=== PATIENT | male | born 1975 | race Caucasian/White ===

== ENCOUNTER 2020-09-15 10:05 | Outpatient (CLI) | payer BC, SELFPAY ==
[2020-09-15 10:58] LABS: Basophils Absolute Auto 0.1 K/mm3 (0.0-0.1); Eosinophils Absolute Auto 0.1 K/mm3 (0-0.3); Eosinophils Percent Auto 1.3 % (0-4.4); Hemoglobin 16.1 g/dL (14.0-18.0); Immature Granulocyte Absolute 0.03 K/mm3 (0.00-0.031); Immature Granulocyte Percent A 0.5 % (0-0.5); Lymphocytes Percent Auto 28.7 % (18.3-44.2); Mean Corpuscular HGB Conc 34.3 g/dl (32-36); Mean Corpuscular Hemoglobin 31.4 pg (26-34); Mean Corpuscular Volume 91.6 fl (80-100); Mean Platelet Volume 9.5 fl (7.4-10.4); Monocytes Absolute Auto 0.4 K/mm3 (0.1-0.6); Monocytes Percent Auto 6.9 % (2.6-8.5); Neutrophils Absolute Auto 3.9 K/mm3 (1.3-6.7); Neutrophils Percent Auto 61.6 % (45.5-73.1); Platelet Count Result 263 k/mm3 (150-375); Red Blood Count 5.13 M/mm3 (4.6-6.20); Red Cell Distribution Width 11.7 % (11.5-14.5); White Blood Count 6.3 K/mm3 (4.5-10.0)
[2020-09-15 11:01] LABS: Add Urine Microscopic? NO; Appearance Urine Clear (Clear); Bilirubin Urine Negative (Negative); Blood Urine Negative (Negative); Color Urine Yellow (Yellow); Glucose Urine UA Negative (Negative); Ketones Urine Negative (Negative); Leukocyte Esterase Ur Negative LEU/UL (NEGATIVE); Nitrate Urine Negative (Negative); Protein Urine Negative (Negative); Specific Grav Ur 1.018 (1.001-1.035); Urobilinogen Urine Negative mg/dL (<2.0)
[2020-09-15 11:11] LABS: Alanine Aminotransferase 45 U/L (4-50); Albumin Level 4.4 g/dL (3.5-5.1); Alkaline Phosphatase 85 U/L (38-126); Anion Gap 10 mmol/L (8-16); Aspartate Amino Transferase 30 U/L (17-59); Bilirubin,Total 0.6 mg/dL (0.2-1.3); Blood Urea Nitrogen 18 mg/dL (9-20); Calcium 9.9 mg/dL (8.4-10.2); Carbon Dioxide 27 mmol/L (22-30); Chloride 105 mmol/L (98-107); Cholesterol 202 mg/dL (0-200); Estimated Glomerular Filt Rate 54; Glucose 130 mg/dL (75-110); HDL Direct 62 mg/dL; Potassium 3.8 mmol/L (3.4-5.0); Sodium 142 mmol/L (137-145); Triglycerides 237 mg/dL (<150)
[2020-09-15 11:15] LABS: Hemoglobin A1C 5.5 % (<5.7)
[2020-09-15 11:25] LABS: LDL Cholesterol Direct 116 mg/dL
[2020-09-15 11:42] LABS: Prostate Specific Antigen 0.8 ng/mL (< OR = 4.0); Thyroid Stimulating Hormone 0.566 uIU/mL (0.465-4.680)
[2020-09-15 12:13] LABS: Free T4 Free Thyroxine 0.82 ng/mL (0.78-2.19)
== END 2020-09-15 10:06 | disposition home or self-care (01) ==
LOC: ANHLAB 10:07
PROVIDERS: PCP Physician Assistant; Visit Provider Physician Assistant
DX: Z13.220 Encounter for screening for lipoid disorders (principal); Z12.5 Encounter for screening for malignant neoplasm of prostate; Z13.1 Encounter for screening for diabetes mellitus; Z79.899 Other long term (current) drug therapy
CPT/HCPCS: 36415; 80053; 80061; 81003; 83036; 84153; 84439; 84443; 85025; G0103

== ENCOUNTER 2020-11-15 09:10 | Outpatient (CLI) | payer BC, SELFPAY ==
--- NOTE | 2020-11-29 14:02 | WPDHOMESLEEP ---
Sleep Study - Home Unattended Date of Study: 11/15/20 Ordering Provider: Magui Hidalgo PA-C Interpreting Provider: Katy Morrow MD Home Sleep Study Type: Apnea Link Air Height: 1.91 m Weight: 108.862 kg Body Mass Index: 29.9 Neck Circumference (inches): 18 [place]: 12 Reason for Sleep Study Fatigue all the time, hypersomnolence, hypertension Sleep History Be Georges is a 45 year-old man who feels tired all the time. He has hypertension, and takes amlodipine. He is sleepy in the day, and has difficulty waking in the morning. He frequently snores, and occasionally it is loud enough that others complain. He occasionally wakes at night with heartburn, belching or coughing. He rarely has trouble sleeping with a cold. He occasionally wakes up gasping for breath during night. He occasionally has breathing problems at night observed by others. He does not sweat excessively at night or notice his heart pounding or beating irregularly night. He occasionally falls asleep during the day, never involuntarily or while driving. He does not have loss of muscle tone with strong emotion. 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 He rarely feels paralyzed on waking or falling asleep. He does not have vivid dreamlike scenes upon awakening or falling asleep. He is not afraid to go to sleep. He rarely has nightmares. He rarely remembers his dreams. He rarely has racing thoughts. He rarely feels sad, depressed or anxious. He rarely has muscular tension. He occasionally notices parts of his body jerking. He occasionally kicks at night. He does not have crawling or aching feelings in his legs and does not have any kind of leg pain at night. He rarely has morning jaw pain. He occasionally grinds his teeth during sleep. He rarely is bothered by pain during the day, rarely is awakened by pain at night. He rarely wakes up feeling stiff in the morning with sore or achy muscles or pain in the spine. He takes antacids regularly. Normal bedtime is 8:30 p.m. falling asleep in 30 seconds, waking during the night up 4 times to urinate. He wakes in the morning at 3:45 a.m.. He estimates getting 6-1/2 or 7 hours of sleep at night. On the weekends, he stays awake until 10:30 p.m., sleeps later, wakes at 7:30 a.m.. He does take a short nap sometime in the afternoon or evening. A short 10 or 15 minute nap can be refreshing. He is usually drowsy in the morning for 3 hours or longer. He feels better in the afternoon compared to the morning. Habits: Never smoked tobacco. He has 5 caffeinated beverage a day. He has 2 alcoholic beverages a day. No recreational drugs. [facility] Past Medical History Medical History (Updated 11/29/20 @ 14:21 by Katy Morrow MD) Depression Generalized anxiety disorder Heartburn Hypertension Nasal congestion Psoriasis Family History Family History (Updated 11/29/20 @ 14:17 by Katy Morrow MD) Grandparent Malignant neoplasm of prostate Family history of coronary artery disease Diabetes mellitus Father Atrial fibrillation COPD (chronic obstructive pulmonary disease) Lung cancer Social History Social History Smoking status: Never smoker Alcohol intake: current Medications Home Medications Medication Instructions Recorded Confirmed Type alprazolam 0.25 mg tablet 0.25 mg PO TID PRN #90 tablet 09/21/19 Rx Medications: amlodipine 5 mg a day citalopram 40 mg a day Humira injection every 2 weeks Sleep Procedure This test was performed using 4 channel monitoring including respiratory effort channel, snoring channel, heart rate channel, and oxygen saturation channel. This study was scored using [facility] guidelines. Sleep Architecture Not applicable for home sleep test. Respiratory Analysis The recording time is 7 hours 59 minutes. Evaluation time is 7 hours 41 minutes. The apnea-hypopnea index is 13.3 mildly elevated. He had
[2020-11-29 14:07] VITALS: BMI 29.9
== END 2020-11-15 09:11 | disposition home or self-care (01) ==
LOC: ANHCSM 09:11
PROVIDERS: Family Provider Family Medicine; PCP Physician Assistant; Visit Provider Physician Assistant
DX: G47.33 Obstructive sleep apnea (adult) (pediatric) (principal); I10 Essential (primary) hypertension
CPT/HCPCS: 95806

== ENCOUNTER → 2021-01-09 04:31 | Outpatient (CLI) | payer BC, SELFPAY ==
[2021-01-09 19:57] LABS: SARS-CoV-2 RNA PCR Negative
== END ==
PROVIDERS: PCP Physician Assistant; Visit Provider Internal Medicine Critical Care Medicine
DX: Z20.822 Contact with and (suspected) exposure to COVID-19 (principal)
CPT/HCPCS: C9803; U0003; U0005

== ENCOUNTER 2021-01-11 07:19 | Outpatient (CLI) | payer BC, SELFPAY ==
--- NOTE | 2021-01-25 15:51 | WPDSLEEPSTUD ---
Sleep Study Ordering Provider: Magui Hidalgo, BRIAN Interpreting Physician: Katy Morrow MD Sleep Study Type: CPAP Titration Height: 1.91 m Weight: 106.594 kg Body Mass Index: 29.3 Neck Circumference (inches): 16.5 [place]: 14 Reason for Sleep Study Home sleep test 11/14/2020 with mild VENICE, AHI 13.3 with all 7 apneas scored as central apneas; patient presents for CPAP titration. Sleep History Be Georges is a 45 year-old man who feels tired all the time. His home sleep test showed 7 apneas, and they were all scored as central apneas. He has hypertension, and takes amlodipine. He is sleepy in the day, and has difficulty waking in the morning. He frequently snores, and occasionally it is loud enough that others complain. He occasionally wakes at night with heartburn, belching or coughing. He rarely has trouble sleeping with a cold. He occasionally wakes up gasping for breath during night. He occasionally has breathing problems at night observed by others. He does not sweat excessively at night or notice his heart pounding or beating irregularly night. He occasionally falls asleep during the day, never involuntarily or while driving. He does not have loss of muscle tone with strong emotion. 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 He rarely feels paralyzed on waking or falling asleep. He does not have vivid dreamlike scenes upon awakening or falling asleep. He is not afraid to go to sleep. He rarely has nightmares. He rarely remembers his dreams. He rarely has racing thoughts. He rarely feels sad, depressed or anxious. He rarely has muscular tension. He occasionally notices parts of his body jerking. He occasionally kicks at night. He does not have crawling or aching feelings in his legs and does not have any kind of leg pain at night. He rarely has morning jaw pain. He occasionally grinds his teeth during sleep. He rarely is bothered by pain during the day, rarely is awakened by pain at night. He rarely wakes up feeling stiff in the morning with sore or achy muscles or pain in the spine. He takes antacids regularly. Normal bedtime is 8:30 p.m. falling asleep in 30 seconds, waking during the night up 4 times to urinate. He wakes in the morning at 3:45 a.m.. He estimates getting 6-1/2 or 7 hours of sleep at night. On the weekends, he stays awake until 10:30 p.m., sleeps later, wakes at 7:30 a.m.. He does take a short nap sometime in the afternoon or evening. A short 10 or 15 minute nap can be refreshing. He is usually drowsy in the morning for 3 hours or longer. He feels better in the afternoon compared to the morning. Habits: Never smoked tobacco. He has 5 caffeinated beverage a day. He has 2 alcoholic beverages a day. No recreational drugs. [facility] Past Medical History Medical History Depression Generalized anxiety disorder Heartburn Hypertension Nasal congestion Psoriasis Family History Family History Grandparent Malignant neoplasm of prostate Family history of coronary artery disease Diabetes mellitus Father Atrial fibrillation COPD (chronic obstructive pulmonary disease) Lung cancer Social History Social History Smoking status: Never smoker Alcohol intake: current Medications Home Medications Medication Instructions Recorded Confirmed Type alprazolam 0.25 mg tablet 0.25 mg PO TID PRN #90 tablet 09/21/19 Rx Medications: amlodipine 5 mg citalopram 40 mg Sleep Procedure This test was performed using the [employer] multiple channel system including EOG, EEG, submental EMG, EKG, nasal and oral airflow using thermistors and nasal pressure sensors, chest and abdominal belts for body position data, and pulse oximetry. Video monitoring was also performed. The study was schardeep
[2021-01-25 15:54] VITALS: BMI 29.3
== END 2021-01-11 07:20 | disposition home or self-care (01) ==
LOC: ANHCSM 07:19
PROVIDERS: PCP Physician Assistant; Visit Provider Physician Assistant
DX: G47.33 Obstructive sleep apnea (adult) (pediatric) (principal); F32.9 Major depressive disorder, single episode, unspecified; F41.1 Generalized anxiety disorder; I10 Essential (primary) hypertension; R12 Heartburn; Z79.899 Other long term (current) drug therapy; G25.81 Restless legs syndrome
CPT/HCPCS: 95811

== ENCOUNTER 2022-03-05 12:10 | Outpatient (CLI) | payer BC, SELFPAY ==
--- NOTE | ~2022-03-05 | XR_ITS ---
EXAMINATION: XR knee RT min 4V, XR tibia fibula RT 2V DATE: 03/05/2022 12:46 INDICATION: Right lower leg injury with medial right knee swelling and laceration to the distal anter ior right lower leg. TECHNIQUE: 1. Anteroposterior, 2 oblique and crosstable lateral views of the affected knee were obtained 2. Anteroposterior and lateral views of the right lower leg were obtained. COMPARISON: None. FINDINGS: Alignment of the right lower leg is normal from the right knee through the ankle. No fracture. Joint spaces are normal. No joint effusion/layering lipohemarthrosis. Small round ossicle either degenerat eric loose osteochondral body or heterotopic ossicle projecting over the soft tissues posterior to the right ankle. Soft tissue swelling medial to the right knee.. No radiopaque foreign bodies. IMPRESSION: 1. No osseous abnormality or radiopaque foreign body. Reviewed, dictated and finalized at location B. IMPRESSION: 1. No osseous abnormality or radiopaque foreign body.
== END 2022-03-05 12:11 | disposition home or self-care (01) ==
LOC: ANHIMG 12:16
PROVIDERS: PCP Physician Assistant; Visit Provider Physician Assistant
DX: S89.91XA Unspecified injury of right lower leg, initial encounter (principal); X58.XXXA Exposure to other specified factors, initial encounter
CPT/HCPCS: 73564; 73590

== ENCOUNTER 2022-03-26 14:19 | Outpatient (NON) | payer BC, SELFPAY ==
[2022-03-26 15:38] LABS: Appearance Synovial Fluid Bloody (Clear); Color Synovial Fluid Red (Colorless); Crystals Synovial Fluid None Seen (None Seen); Lymphocytes Synovial Fluid 18 %; Monocytes Synovial Fluid 74 %; Neutrophils Synovial Fluid 8 % (0-25); Nucleated Cell Synovial Fluid 580 /uL (0-200); Source Synovial Fluid Synovial fluid
== END 2022-03-26 14:20 | disposition home or self-care (01) ==
PROVIDERS: PCP Physician Assistant; Visit Provider Orthopaedic Surgery
DX: M25.561 Pain in right knee (principal)
CPT/HCPCS: 87070; 87075; 87205; 89051; 89060

== ENCOUNTER 2022-08-31 00:28 | Day surgery (SDC) | payer BC, SELFPAY ==
[2022-08-23 14:17] VITALS: BMI 30.8
--- NOTE | 2022-08-30 20:26 | PM.HPGS ---
History of Present Illness History of Present Illness Consent: Risks, benefits, and alternatives have been discussed and questions answered. Patient agrees to proceed with procedure. Chief complaint: neoplasm screening Narrative: Be Georges is a 47 year old male Referred for colon cancer screening. Review of Systems Review of Systems: All systems reviewed & are unremarkable except as noted in HPI and below PMFSH Past Medical History Medical History Depression Generalized anxiety disorder Heartburn Hypertension Nasal congestion Psoriasis Family History Family History Grandparent Malignant neoplasm of prostate Family history of coronary artery disease Diabetes mellitus Father Atrial fibrillation COPD (chronic obstructive pulmonary disease) Lung cancer Social History Social History Smoking status: Never smoker Alcohol intake: current Alcohol use details: socially Substance use: never Substance use type: does not use Living arrangements: with family Spiritual care concerns: No Meds Home Medications and Allergies Home Medications Medication Instructions Recorded Confirmed Type alprazolam 0.25 mg tablet 0.25 mg PO TID PRN anxiety #90 tabs 09/21/19 08/23/22 Rx amlodipine 5 mg tablet 5 mg PO DAILY 08/23/22 08/23/22 History aripiprazole 2 mg tablet 2 mg PO DAILY 08/23/22 08/23/22 History citalopram 40 mg tablet 40 mg PO DAILY 08/23/22 08/23/22 History fluticasone propionate 50 2 spray intranasal DAILY 08/23/22 08/23/22 History mcg/actuation nasal spray,suspension meloxicam 15 mg tablet 15 mg PO DAILY 08/23/22 08/23/22 History Allergies Allergy/AdvReac Type Severity Reaction Status Date / Time No Known Allergies Allergy Mild Verified 08/31/22 09:26 Exam Resp: Auscultation: clear to auscultation bilaterally Cardio: Rate: regular rate Rhythm: regular rhythm GI: GI Palp: Yes Soft to palpation and No Tenderness to palpation present (GI) Assessment and Plan Assessment and plan (1) Colon cancer screening: Code(s): Z12.11 - Encounter for screening for malignant neoplasm of colon Status: Acute Assessment and Plan: Colonoscopy with possible biopsy or polypectomy or cautery or injection of substances.
[2022-08-31] VITALS (10 sets, daily range): BP systolic 137–171; BP diastolic 103–120; PULSE 80–106; RESP 18–22; TEMP 36.4; O2SAT 96–98
[2022-08-31] MEDS: LACTATED RINGERS 1,000 ML 150 ML IV CONT (09:43)
[2022-08-31] MEDS: LABETALOL HCL INJ 100 MG/20 ML VIAL IV PUSH ×2 (11:15→11:25)
--- NOTE | 2022-08-31 11:17 | SUR.PHASEII ---
1054: EDILIA OLIVEIRA AND DR CORDOBA BOTH AWARE OF PT'S BLOOD PRESSURE, 166/116, HEARTRATE 108. NO NEW ORDERS RECEIVED AT THIS TIME. WILL CONTINUE TO MONITOR. 1115: DR CORDOBA MADE AWARE OF PT'S CURRENT VITAL SIGNS, 171/117, HEARTRATE 106 AND 166/119, HEARTRATE 104. NEW ORDER RECEIVED FOR LABETALOL 5MG IV PUSH. EDILIA WINTER ADMINISTERED PER ORDERS. 1121: CURRENT BLOOD PRESSURE 164/120, HEARTRATE 88. DR CORDOBA SEEING PT. DR CORDOBA ADMINISTERED ANOTHER 5MG IV PUSH LABETALOL. PT AWAKE AND TALKING. PT AND SPOUSE EDUCATED. PT AND SPOUSE STATE UNDERSTANDING AND HAVE NO CONCERNS. WILL CONTINUE TO MONITOR.
--- NOTE | 2022-08-31 11:33 | SUR.PHASEII ---
DR CORDOBA SEEING PT. CURRENT BLOOD PRESSURE 163/120, HEART RATE 78. PT CONTINUES TO BE AWAKE AND ALERT. NO NEW ORDERS RECEIVED AT THIS TIME. REPORT GIVEN TO TONYA BARON TO ASSUME CARE FOR THIS PT AT THIS TIME.
--- NOTE | 2022-08-31 12:25 | SUR.PHASEII ---
Patient's BP started to trend down x2 after 1134. Dr. Lawson informed. Ok to d/c per Dr. Lawson. Patient is stable. No cardiac symptoms of dizziness, chest pain, or headache upon discharge. Informed patient to keep checking BP today after he gets home. Instructed to go to ER is patient gets symptomatic or readings get too high. Family and patient verbalize understanding.
== END 2022-08-31 12:08 | disposition home or self-care (01) ==
PROVIDERS: PCP Physician Assistant; Visit Provider Internal Medicine Gastroenterology
PROC: 0DJD8ZZ Inspection of Lower Intestinal Tract, Via Natural or Artificial Opening Endoscopic (ICD-10-PCS; CPT 45378; principal; 2022-08-31 10:30)
DX: Z12.11 Encounter for screening for malignant neoplasm of colon (principal); K57.30 Diverticulosis of large intestine without perforation or abscess without bleeding; I10 Essential (primary) hypertension; L40.9 Psoriasis, unspecified
CPT/HCPCS: 45378; J2704; J7120

== ENCOUNTER 2023-02-19 14:37 | Outpatient (CLI) | payer BC, SELFPAY ==
--- NOTE | ~2023-02-19 | MR_ITS ---
EXAMINATION: MR foot LT wo con DATE: 02/19/2023 15:36 INDICATION: Anterior tibial syndrome. Left foot pain. TECHNIQUE: Magnetic resonance imaging (MRI) of the left foot was performed without intravenous contra st. COMPARISON: None FINDINGS: Bone alignment is normal. No fracture. There is mild osteoarthritis of the ankle joint and some of the midfoot joints. There is severe osteoarthritis of first and second tarsometatarsal joints . There is a skin marker dorsal to these joints. There are changes of sprain of the Lisfranc ligament characterized by increased signal intensity. There are changes of prior sprain of the deltoid ligame nt characterized by thickening and increased signal involving the superficial component and heterotop ic ossification involving the deep component. There are changes of prior sprain of anterior talofibul ar ligament and calcaneofibular ligament characterized by increased signal intensity. Anterior tibiof ibular ligament, posterior tibiofibular ligament, and posterior talofibular ligament are normal. Ther e is tenosynovitis of extensor digitorum longus. Anterior tibial tendon is normal. IMPRESSION: 1. 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 2. Lisfranc ligament sprain. 3. Tenosynovitis of extensor digitorum longus. Reviewed, dictated and finalized at location A.
== END 2023-02-19 14:38 | disposition home or self-care (01) ==
PROVIDERS: PCP Physician Assistant; Visit Provider Podiatrist Foot & Ankle Surgery
DX: M19.072 Primary osteoarthritis, left ankle and foot (principal); S93.692A Other sprain of left foot, initial encounter; M65.872 Other synovitis and tenosynovitis, left ankle and foot; X58.XXXA Exposure to other specified factors, initial encounter
CPT/HCPCS: 73718

== ENCOUNTER 2023-06-14 21:47 | Emergency (ER) | payer BC, SELFPAY ==
--- NOTE | ~2023-06-14 | XR_ITS ---
EXAMINATION: XR forearm RT 2V INDICATION: Right forearm pain, dog bite TECHNIQUE: Two views of the right forearm are obtained. COMPARISON: None available FINDINGS: Bone alignment is normal. There is no fracture. There is soft tissue swelling of the distal forearm. IMPRESSION: 1. Soft tissue swelling of the distal forearm without evidence of underlying osseous abnormality. Reviewed, dictated and finalized at location F. IMPRESSION: 1. Soft tissue swelling of the distal forearm without evidence of underlying os seous abnormality.
[2023-06-14 21:53] VITALS: BP 136/98; PULSE 135; RESP 18; TEMP 37.5; O2SAT 95
[2023-06-14 22:41] LABS: Basophils Absolute Auto 0.1 K/mm3 (0.0-0.1); Basophils Percent Auto 0.5 % (0.2-1.2); Eosinophils Absolute Auto 0.1 K/mm3 (0-0.3); Eosinophils Percent Auto 0.4 % (0-4.4); Hematocrit 44.3 % (42.0-52.0); Hemoglobin 15.1 g/dL (14.0-18.0); Immature Granulocyte Absolute 0.05 K/mm3 (0.00-0.031); Immature Granulocyte Percent A 0.3 % (0-0.5); Lymphocytes Absolute Auto 2.03 K/mm3 (0.9-3.2); Lymphocytes Percent Auto 12.9 % (18.3-44.2); Mean Corpuscular HGB Conc 34.1 g/dl (32-36); Mean Corpuscular Hemoglobin 31.1 pg (26-34); Mean Corpuscular Volume 91.3 fl (80-100); Mean Platelet Volume 9.5 fl (7.4-10.4); Monocytes Absolute Auto 1.1 K/mm3 (0.1-0.6); Monocytes Percent Auto 7.2 % (2.6-8.5); Neutrophils Absolute Auto 12.4 K/mm3 (1.3-6.7); Neutrophils Percent Auto 78.7 % (45.5-73.1); Platelet Count Result 260 k/mm3 (150-375); Red Blood Count 4.85 M/mm3 (4.6-6.20); Red Cell Distribution Width 12.3 % (11.5-14.5); White Blood Count 15.8 K/mm3 (4.5-10.0)
[2023-06-14 22:55] LABS: Anion Gap 8 mmol/L (8-16); Blood Urea Nitrogen 14 mg/dL (9-20); Calcium 9.6 mg/dL (8.4-10.2); Carbon Dioxide 27 mmol/L (22-30); Chloride 104 mmol/L (98-107); Estimated CRCL calculation 90 ml/min; Estimated Glomerular Filt Rate > 60; Glucose 127 mg/dL (65-110); Potassium 3.6 mmol/L (3.4-5.0); Sodium 139 mmol/L (137-145)
--- NOTE | 2023-06-15 00:35 | ECG_ITS ---
Measurements Intervals [place] Rate: 112 P: 135 MN: 156 QRS: 159 QRSD: 96 T: 147 QT: 323 QTc: 442 Interpretive Statements SINUS TACHYCARDIA ARM LEADS REVERSED DELAYED PRECORDIAL R/S TRANSITION BASELINE WANDER- II, III, AVL, AVF ABNORMAL ECG NO PREVIOUS ECG AVAILABLE FOR COMPARISON Electronically Signed On 06-15-2023 8:12:55 CDT by Isrrael Ellis D.O.
--- NOTE | 2023-06-15 00:35 | ED.WOUNDLAC ---
HPI - Wound/Laceration General Chief Complaint: Wound/Laceration Stated Complaint: wound to right arm Time Seen by Provider: 06/15/23 00:27 History of Present Illness HPI narrative: 47-year-old male reports for evaluation for redness and pain to his right forearm after a dog bite 3 days ago. Patient states 3 days ago, his dogs were fighting and he tried to break the fight up and either got bit or scratched in the dorsum of his right distal forearm. States he did not have any problems in that area until he woke up this morning with edema, erythema and pain. States he has had intermittent subjective fevers with body aches and chills and an episode of nausea earlier today. He denies vomiting, purulent drainage, difficulty with range of motion of his arm or wrist. No history of diabetes or vascular disease. Patient states his dogs are up-to-date on their vaccines. Related Data Home Medications Medication Instructions Recorded Confirmed amlodipine 5 mg tablet 5 mg PO DAILY 08/23/22 08/23/22 aripiprazole 2 mg tablet 2 mg PO DAILY 08/23/22 08/23/22 citalopram 40 mg tablet 40 mg PO DAILY 08/23/22 08/23/22 fluticasone propionate 50 2 spray intranasal DAILY 08/23/22 08/23/22 mcg/actuation nasal spray,suspension meloxicam 15 mg tablet 15 mg PO DAILY 08/23/22 08/23/22 Allergies Allergy/AdvReac Type Severity Reaction Status Date / Time No Known Allergies Allergy Mild Verified 08/31/22 09:26 Review of Systems Review of Systems: CONSTITUTIONAL: Denies fever, chills EYES: Denies visual changes, redness, or discharge. ENT: Denies rhinorrhea, congestion, sore throat, or otalgia. CARDIOVASCULAR: Denies chest pain, palpitations, or edema. RESPIRATORY: Denies cough or dyspnea. GASTROINTESTINAL: Denies abdominal pain, nausea, vomiting, or diarrhea. GENITOURINARY: Denies dysuria or hematuria. SKIN: See HPI MUSCULOSKELETAL: Denies back pain, joint pain, or myalgia. NEUROLOGIC: Denies headache, numbness, dizziness, or weakness. PSYCHIATRIC: Denies anxiety or depression. [facility] Past Medical History Medical History Depression Generalized anxiety disorder Heartburn Hypertension Nasal congestion Psoriasis Family History Family History Grandparent Malignant neoplasm of prostate Family history of coronary artery disease Diabetes mellitus Father Atrial fibrillation COPD (chronic obstructive pulmonary disease) Lung cancer Social History Social History Smoking status: Never smoker Alcohol intake: current Alcohol use details: socially Substance use: never Substance use type: does not use Living arrangements: with family Spiritual care concerns: No Exam Narrative: GENERAL: Well-appearing, in no acute distress. Patient resting comfortably in exam bed. He is pleasant and conversational. HEAD: Normocephalic EYES: PERRLA ENT: Nares clear. Mucous membranes moist. Oropharynx without tonsillar hypertrophy exudate or other lesions. NECK: Supple. CHEST: No respiratory distress. Clear to auscultation, no adventitious breath sounds. HEART: Regular rate and rhythm. No murmur heard. Normal peripheral pulses. ABDOMEN: Soft, nontender, normal active bowel sounds. EXTREMITIES: Normal range of motion. No edema. SKIN: 6 cm annular region of warmth, erythema and tenderness to the dorsum of the distal right forearm with a central puncture that has a healing scab. There is an area of induration surrounding the puncture without fluctuance. No active drainage. Full range of motion of wrist. Radial pulse 2+. Cap refill less than 2. Sensation intact NEURO: No focal deficits. Alert and oriented x3. PSYCH: Normal mood and affect. Course Vital Signs Vital signs: Vital Signs Temperature 99.5 F 06/14/23 21:53 Pulse Rate 135 H
[2023-06-15] MEDS: SODIUM CHLORIDE 0.9% IV 1,000 ML 999 ML IV CONT (01:11)
[2023-06-15] MEDS: ACETAMINOPHEN 500 MG TABLET 1000 MG PO (01:22)
[2023-06-15] MEDS: TETANUS,DIPHTHERIA,AC PERTUSSIS ADULT (0.5 ML) BOOSTRIX IM (01:23)
[2023-06-15] MEDS: ceFAZolin 1 GM/NS 50 ML 1 GM/50 ML BAG IVPB (01:30)
[2023-06-15 01:39] LABS: Lactic Acid Reflex 1.5 mmol/L (0.7-2.0)
[2023-06-15 01:41] LABS: CRP 1.9 mg/dL (<1.0)
[2023-06-15 02:10] VITALS: BP 150/95; PULSE 101; RESP 15; O2SAT 98
[2023-06-15 02:47] VITALS: BP 146/70; PULSE 99; RESP 14; O2SAT 95
== END 2023-06-15 03:17 | disposition home or self-care (01) ==
PROVIDERS: Emergency Medicine; Emergency Provider Physician Assistant; PCP Physician Assistant
DX: S51.851A Open bite of right forearm, initial encounter (principal); L03.113 Cellulitis of right upper limb; Z23 Encounter for immunization; I10 Essential (primary) hypertension; R12 Heartburn; L40.9 Psoriasis, unspecified; F32.A Depression, unspecified; F41.1 Generalized anxiety disorder; W54.0XXA Bitten by dog, initial encounter
CPT/HCPCS: 36415; 73090; 80048; 83605; 85025; 86140; 87040; 90471; 90715; 93005; 96365; 99284; A9270; J0690; J7030

== ENCOUNTER → 2023-07-29 07:51 | Outpatient (CLI) | payer BC, SELFPAY ==
--- NOTE | ~2023-07-29 | US_ITS ---
Limited Abdominal Sonogram: Real-time sonographic imaging of the right upper quadrant was performed. Clinical History: Abnormal liver transaminase levels Findings: The liver appears echogenic, with no definite evidence of solid mass lesion or bile duct d ilatation. Small hepatic cyst present. Main portal vein demonstrates normal direction of flow. The ga llbladder is well distended, and appears normal with no evidence of gallstone or wall thickening. The common bile duct measures 5 mm. The visualized aorta, and IVC are unremarkable. Pancreas is largely obscured by bowel gas shadowing. Right kidney measures 11.8 cm in length, without evidence of hydron ephrosis. Impression: Diffuse fatty infiltration of liver. Portions of the liver obscured by bowel gas shadowing. Reviewed, dictated and finalized at location M. [employer] Impression: Diffuse fatty infiltration of liver. Portions of the liver obscured by bowel ga s shadowing.
== END ==
PROVIDERS: PCP Physician Assistant; Visit Provider Physician Assistant
DX: R74.01 Elevation of levels of liver transaminase levels (principal); K76.0 Fatty (change of) liver, not elsewhere classified
CPT/HCPCS: 76705

== ENCOUNTER 2024-04-01 00:40 | Day surgery (SDC) | payer BC, SELFPAY ==
[2024-03-18 10:00] VITALS: BMI 31.9
[2024-04-01 07:57] VITALS: BP 145/103; PULSE 93; RESP 18; TEMP 36.4; O2SAT 96
[2024-04-01] MEDS: LACTATED RINGERS 1,000 ML 150 ML IV CONT (08:07)
--- NOTE | 2024-04-01 08:19 | PM.HPGS ---
History of Present Illness History of Present Illness Consent: Risks, benefits, and alternatives have been discussed and questions answered. Patient agrees to proceed with procedure. Chief complaint: GERD, Dysphagia Narrative: Be Georges is a 48 year old male with dysphagia which has improved after ppi but never had egd Review of Systems Review of Systems: All systems reviewed & are unremarkable except as noted in HPI and below PMFSH Past Medical History Medical History Depression Generalized anxiety disorder Heartburn Hypertension Nasal congestion Psoriasis Family History Family History Grandparent Malignant neoplasm of prostate Family history of coronary artery disease Diabetes mellitus Father Atrial fibrillation COPD (chronic obstructive pulmonary disease) Lung cancer Social History Social History Smoking status: Never smoker Alcohol intake: current Drinks per week: 6 Alcohol use details: socially Substance use: current Substance use type: marijuana Living arrangements: with family Spiritual care concerns: No Meds Home Medications and Allergies Home Medications Medication Instructions Recorded Confirmed Type alprazolam 0.25 mg tablet 0.25 mg PO TID PRN anxiety #90 tabs 09/21/19 03/18/24 Rx amlodipine 5 mg tablet 5 mg PO DAILY 08/23/22 03/18/24 History aripiprazole 2 mg tablet 2 mg PO DAILY 08/23/22 03/18/24 History fluticasone propionate 50 2 spray intranasal DAILY 08/23/22 03/18/24 History mcg/actuation nasal spray,suspension omeprazole 40 mg capsule,delayed 40 mg PO DAILY 02/26/24 03/18/24 History release sertraline 150 mg capsule 150 mg PO DAILY 03/18/24 03/18/24 History Allergies Allergy/AdvReac Type Severity Reaction Status Date / Time No Known Allergies Allergy Mild Verified 04/01/24 07:55 Vital Signs Vital Signs - 24 hr 04/01/24 07:57 Temperature 97.6 F Pulse Rate 93 Respiratory Rate 18 Blood Pressure 145/103 H Pulse Oximetry 96 Oxygen Delivery Room Air Exam Const: General: comfortable and no acute distress HENMT: Face/Nose/Sinus: Normal nares present Eyes: General: appearance normal, both eyes and all related structures Neck: Neck: no JVD Resp: Auscultation: clear to auscultation bilaterally Cardio: Rate: regular rate Rhythm: regular rhythm GI: Inspection: non-distended GI Palp: Yes Soft to palpation Skin: General skin exam: normal color Neuro: General: gait normal Speech: normal speech Extrem: General: normal to inspection Psych: Mental Status: mental status grossly normal Assessment and Plan Assessment and plan (1) Dysphagia: Code(s): R13.10 - Dysphagia, unspecified Status: Acute Assessment and Plan: egd wiht bx better with ppi ? EoE (2) GERD (gastroesophageal reflux disease): Code(s): K21.9 - Gastro-esophageal reflux disease without esophagitis Status: Acute
--- NOTE | 2024-04-01 08:22 | WPDANESEPPF ---
Anes - Initial Pre Proc Eval Procedure: Operation Date: 04/01/24 09:00 Proposed Procedures p Esophagogastroduodenoscopy - Owen Veronica MD Date/Time: 04/01/24 08:22 Surgeon: Owen Veronica MD Pre Op Diagnosis: GERD, Dysphagia Patient Data Age: 48 Gender: M Height: 1.91 m Weight: 115.4 kg Last Vital Signs Temp 97.6 F 04/01/24 07:57 Pulse 93 04/01/24 07:57 Resp 18 04/01/24 07:57 BP 145/103 H 04/01/24 07:57 Pulse Ox 96 04/01/24 07:57 O2 Del Method Room Air 04/01/24 07:57 Allergies Allergy/AdvReac Type Severity Reaction Status Date / Time No Known Allergies Allergy Mild Verified 04/01/24 07:55 Home Medications Medication Instructions Recorded Confirmed Type alprazolam 0.25 mg tablet 0.25 mg PO TID PRN anxiety #90 tabs 09/21/19 03/18/24 Rx amlodipine 5 mg tablet 5 mg PO DAILY 08/23/22 03/18/24 History aripiprazole 2 mg tablet 2 mg PO DAILY 08/23/22 03/18/24 History fluticasone propionate 50 2 spray intranasal DAILY 08/23/22 03/18/24 History mcg/actuation nasal spray,suspension omeprazole 40 mg capsule,delayed 40 mg PO DAILY 02/26/24 03/18/24 History release sertraline 150 mg capsule 150 mg PO DAILY 03/18/24 03/18/24 History Patient hx anesthesia problems: none Family hx anesthesia problems: none Results Review: All pre-operative results and documents have been reviewed as part of the pre-operative evaluation. [facility] Past Medical History Medical History Depression Generalized anxiety disorder Heartburn Hypertension Nasal congestion Psoriasis Family History Family History Grandparent Malignant neoplasm of prostate Family history of coronary artery disease Diabetes mellitus Father Atrial fibrillation COPD (chronic obstructive pulmonary disease) Lung cancer Social History Social History Smoking status: Never smoker Alcohol intake: current Drinks per week: 6 Alcohol use details: socially Substance use: current Substance use type: marijuana Living arrangements: with family Spiritual care concerns: No Anes - Eval Final PreProcedure Day of Procedure 04/01/24 08:22 Patient weight: obese Heart: regular rate and rhythm Lungs: clear to auscultation Airway: Mallampati scale class II Neurological: alert and oriented Last oral intake: >/= 8 hours ASA classification: III Emergent: no Anesthetic plan: proceed Anesthesia type and monitoring: general GIVS and standard monitoring Results Review: All pre-operative results and documents have been reviewed as part of the pre-operative evaluation. Informed Consent: The patient's anesthetic plan and its attendant risks and benefits were discussed with the patient/family/POA. Questions were solicited and answers provided to the satisfaction of the patient/family/POA.
[2024-04-01 09:07] VITALS: BP 130/94; PULSE 89; RESP 16; O2SAT 96
[2024-04-01 09:17] VITALS: BP 136/97; PULSE 87; RESP 19; O2SAT 96
[2024-04-01 09:27] VITALS: BP 140/96; PULSE 79; RESP 18; O2SAT 98
== END 2024-04-01 09:33 | disposition home or self-care (01) ==
PROVIDERS: PCP Physician Assistant; Referring Provider Nurse Practitioner; Visit Provider Internal Medicine Gastroenterology
PROC: 0DJ08ZZ Inspection of Upper Intestinal Tract, Via Natural or Artificial Opening Endoscopic (ICD-10-PCS; CPT 43235; principal; 2024-04-01 09:00)
DX: K21.00 Gastro-esophageal reflux disease with esophagitis, without bleeding (principal); K29.50 Unspecified chronic gastritis without bleeding; K22.2 Esophageal obstruction; K44.9 Diaphragmatic hernia without obstruction or gangrene; F32.A Depression, unspecified; F41.9 Anxiety disorder, unspecified; I10 Essential (primary) hypertension; L40.9 Psoriasis, unspecified; F12.90 Cannabis use, unspecified, uncomplicated; E66.9 Obesity, unspecified; Z68.31 Body mass index [BMI] 31.0-31.9, adult; Z80.42 Family history of malignant neoplasm of prostate; Z80.1 Family history of malignant neoplasm of trachea, bronchus and lung; Z82.49 Family history of ischemic heart disease and other diseases of the circulatory system
CPT/HCPCS: 43249; 88305; C1726; J2704; J7120

== ENCOUNTER 2025-04-10 07:29 | Outpatient (CLI) | payer BC, SELFPAY ==
--- OUTSIDE RECORDS SUMMARY | 2025-04-10 07:31 | XMS_ITS | Clinical Summary ---
Author Organization [facility] Address [address] [place] [address] Care Team Providers Care Marble Setter Helper Name Role Phone Unknown, Notinfile Primary Care Provider Unavail able Cate Mar DPM Unavailable [phone] Allergies No known active allergies Medications sertraline (ZOLOFT) 100 mg tablet Take 1 tablet (100 mg total) by mouth nightly at bedtime 08/06/2023 Active amLODIPine (NORVASC) 10 mg tablet Take 1 tablet (10 mg total) by mouth daily 07/17/2023 Active ARIPiprazole (ABILIFY) 2 mg tablet Take 1 tablet (2 mg total) by mouth daily 08/06/2023 Active Humira,CF, 40 mg/0.4 mL syringe kit Inject 0.4 mL (40 mg total) under the skin every 14 (fourteen) days 08/12/2023 Active Active Problems Problem Noted Date Diagnosed Date Arthritis of left ankle 08/16/2023 Sprain of tarsometatarsal joint of left foot 09/2022 Snoring 06/15/2014 Sleep apnea syndrome 06/15/2014 Surgical History Surgery Date Site/Laterality Comments FOOT SURGERY r/t lawnmower accident Medical History Medical History Date Comments PONV (postoperative nausea and vomiting) Sleep apnea Hypertension Depression Social History Tobacco Use Types Packs/Day Years Used Date Smoking Tobacco: Never Smokeless Tobacco: Never Tobacco Cessation:Counseling Given: Not Answered AUDIT-C Answer Date Recorded Q1: How often do you have a drink containing alc ohol? 2-3 times a week 08/28/2023 Q2: How many drinks containi ng alcohol do you have on a typical day when you are drinking? 3 or 4 08/28/2023 Q3: How often do you have si x or more drinks on one occasion? Never 08/28/2023 Personal Safety Answer Date Recorded Have you ever been in or are you currently in a harmful physical or emotional relationship or is someone making you feel afraid or unsafe? Denies 09/06/2023 Sex and Gender Information Value Date Recorded Sex Assigned at Not on file Legal Sex Male 11:14 AM ELECTRONIC DEVICE MONITOR Gender Identity Not on file Sexual Orientation Not on file Obstetrics History Last Filed Vital Signs Vital Sign Reading Time Taken Comments Blood Pressure 136/93 09/06/2023 4:25 PM ELECTRONIC DEVICE MONITOR Pulse 102 09/06/2023 4:25 PM ELECTRONIC DEVICE MONITOR Temperature 36 C (96.8 F) 09/06/2023 4:25 PM ELECTRONIC DEVICE MONITOR Respiratory Rate 20 09/06/2023 4:25 PM ELECTRONIC DEVICE MONITOR Oxygen Saturation 93% 09/06/2023 4:25 PM ELECTRONIC DEVICE MONITOR Inhaled Oxygen Concentration - - Weight 116.4 kg (256 lb 9.9 oz) 023 10:12 AM ELECTRONIC DEVICE MONITOR Height 188 cm (6' 2) 09/06/2023 10:12 AM ELECTRONIC DEVICE MONITOR Body Mass Index 32.95 09/06/2023 10:12 AM ELECTRONIC DEVICE MONITOR Plan of Treatment Health Maintenance Due Date Last Done Comments Colon Cancer Screening-Colonoscopy 1973 Depression Screening 1973 Hepatitis C Screening 1973 Prostate Cancer Screening-PSA 1973 Hepatitis B Screening 1991 Regular Well Visit/Exam 18-64 1991 Covid-19 Vaccine ( season) 2024 12/28/2022, 08/22/2021, 12/19/2020, Additional history exists Influenza Vaccine (#1) 2025 07/17/2024, 2012 DTaP/Tdap/Td Vaccine (2 - Td or Tdap) 06/15/2033 06/15/2023 Zoster Vaccine Completed 10/23/2024, 07/17/2024 Pneumococcal vaccine <65 Aged Out No longer eligible based on patient's age to complete this topic Medical Devices Implanted Type Area Case Resource Manager Device Identifier Shelf Expiration Date Model / Serial / Lot [employer] Low Profile Foot Ankle Plate Bone Titanium Lapidus Ar-8941 - Sna - [id number] Implanted:Qty: 1 on 09/06/2023 by Cate Mar, ZAKIM at [facility] Plate Left: Foot [employer] AR-8941 / NA / [id number] [employer] Screw Bone 3.5mm 48mm Ti Mini F/T Cmpr Cannltd Variable Step Ar-8730-48h - Sn/A - [id number] Implanted:Qty: 1 on 09/06/2023 by Cate Mar, ZAKIM at [facility] Screw Left: Foot [employer] C1713 AR-8730-48H / N/A / [id number] [employer] Screw Bone 4mm 36mm Ti Std Cannulated Hex Ar-8740-36h - Sn/A - [id number] Implanted:Qty: 1 on 09/06/2023 by Cate Mar, ZAKIM at [facility] Screw Left: Foot [employer] C1713 AR-8740-36H / N/A / [id number] [employer] Low Profile Screws 2.4mm 26mm Self Drill Self Tap Cannulated Ar-8724-26 - Sn/A - [id number] Implanted:Qty: 1 on 09/06/2023 by Cate Mar, DPM at [facility] Screw Left: Foot [employer] C1713 AR-8724-26 / N/A / [id number] [employer] Screw Kreulock Compression Titanium 3.5x24mm [id number] - Sn/A - [id number] Implanted:Qty: 2 on 09/06/2023 by Cate Mar, DPM at [facility] Screw Left: Foot [employer] C1713 AR-8935CL-2 4 / N/A / [id number] [employer] Screw Kreulock Compression Titanium 3.6dlb59yt [id number] - Sn/A - [id number] Implanted:Qty: 1 on 09/06/2023 by Cate Mar, DPM at [facility] Screw Left: Foot [employer] C1713 AR-8935CL-2 6 / N/A / [id number] [employer] Low Profile Screws 3.5mm 32mm Self Tap Solid Hexalobe Midfoot Ar-8935-32 - Sn/A - [id number] Implanted:Qty: 1 on 09/06/2023 by Cate Mar, ZAKIM at [facility] Screw Left: Foot [employer] C1713 AR-8935-32 / N/A / [id number] [employer] Screw Kreulock Compression Titanium 2.4x20mm [id number] - Sn/A - [id number] Implanted:Qty: 2 on 09/06/2023 by Cate Mar, ZAKIM at [facility] Screw Left: Foot [employer] C1713 AR-8724VCL- 20 / N/A / [id number] [employer] Screw Kreulock Compression Titanium 2.4x26mm [id number] - Sn/A - [id number] Implanted:Qty: 1 on 09/06/2023 by Cate Mar, ZAKIM at [facility] Screw Left: Foot [employer] C1713 AR-8724VCL- 26 / N/A / [id number] [employer] Graft Bone Filler Allosync 2.5cc Putty Abs-2009-10 - Sn/A - [id number] Implanted:Qty: 1 on 09/06/2023 by Cate Mar, ZAKIM at [facility] Left: Foot [employer] 07/27/2027 ABS-2009-10 / N/A / [id number] [employer] Screw Kreulock Compression Titanium 2.4x18mm [id number] - Sn/A - [id number] Implanted:Qty: 1 on 09/06/2023 by Cate Mar, ZAKIM at [facility] Left: Foot [employer] C1713 AR-8724VCL- 18 / N/A / [id number] [employer] Plate Bone Titanium T Foot Metatarsal 6 Hole Low Profile 2.4mm Screw [id number] - [id number] - [id number] Implanted:Qty: 1 on 09/06/2023 by Cate Mar, LUIGI at [facility] Left: Foot [employer] C1776 AR-8952MT-0 6 / [id number] / N/A Explanted Type Area Case Resource Manager Device Identifier Shelf Expiration Date Model / Serial / Lot [employer] Low Profile Screws 3.5mm 18mm Self Tap Solid Hexalobe Midfoot Ar-8935-18 - Sn/A - [id number] Explanted:Qty: 1 on 09/06/2023 by Cate Mar DPM at [facility] Screw Left: Foot [employer] C1713 AR-8935-18 / N/A / [id number] [employer] Screw Kreulock Compression Titanium 3.5x24mm [id number] - Sn/A - [id number] Explanted:Qty: 1 on 09/06/2023 by Cate Mar DPM at [facility] Screw Left: Foot [employer] C1713 AR-8935CL-2 4 / N/A / [id number] Insurance [employer] [facility] [place] OOS Care Teams Marble Setter Helper Relationship Specialty Start Date End Date Unknown, Notinfile PCP - General 09/05/23 Cate Mar DPM [address] [place] [id number] Consulting Physician Foot and Ankle Surg 09/06/23
--- OUTSIDE RECORDS SUMMARY | 2025-04-10 07:31 | XMS_ITS | Data Portability ---
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 Plan of Treatment Reminders Order Date Submit Date Provider Last Modified By Organization Details Last Modified Time Details Appointments None recorded. Lab PSA, serum or plasma 2022 023 [facility], [address], [address], 4 08:10:30 hepatic function panel, serum 2022 023 [facility], [address], [address], 4 08:10:28 hepatitis panel (A+B+C), acute, serum 2022 023 [facility], [address], [address], 4 08:10:27 gamma-gluta myl transferase (ggt), serum 2022 023 [facility], [address], [address], 4 08:10:29 lipid panel, serum 2022 023 [facility], [address] [place], [address], 03:59:40 HbA1c (hemoglobin A1c), blood 2022 023 [email or web address], [facility] [address] [address], [place], [address], 04:00:13 CBC w/ auto diff 2022 023 [email or web address], [facility] [address], [address], 04:00:14 CMP, serum or plasma 2022 023 [email or web address], [facility] [address], [address], 03:59:41 lipid panel, serum 2022 023 [email or web address], [facility] [address], [address], 10:23:52 HbA1c (hemoglobin A1c), blood 2022 023 [email or web address], [address], [address], 10:23:52 CBC w/ auto diff 2022 023 [email or web address], [address], [address], 10:23:52 CMP, serum or plasma 2022 023 [email or web address], [facility] [address], [address], 10:23:52 Referral None recorded. Procedures None recorded. Surgeries None recorded. Imaging US, liver 2022 023 [facility] (Imaging), [address], [place], [address], 3 09:26:57 Medication Orders amlodipine 10 mg tablet 2022 023 [facility]76, [address], [place], [place], [id number], 3 12:49:00 amoxicillin 875 mg tablet 2022 023 [email or web address]70620, [address] , [place], [place], [id number], 3 12:41:18 Medrol (Fab) 4 mg tablets in a dose pack 2022 023 [email or web address] 4 [facility] #87429, [address] [facility], [place], [id number], 3 12:41:37 Patient TargetsNo targets recorded. Patient InstructionsNo instructions recorded. Reason for Referral None Reported. Results Created Date Observation Date Name Description Value Unit Range Abnormal Flag Note LastModifiedBy Organization Detail LastModifiedTime 07/25/20 22 07/26/2022 PSA, TOTAL PSA, total 1.47 NG/mL < or = 4.00 normal The total PSA value from this assay syste m is stand ardiz ed again st the WHO stand dwight. The test resul t will be appro ximat heaven 20% lower when donnie red to the equim olar- stand ardiz ed total PSA (Escobar man Coult er). Donnie rison of seria l PSA resul ts shoul d be inter prete d with this fact in mind. This test was perfo rmed using the [employer] chemi lumin escen t metho d. Value s obtai camron from diffe rent assay metho ds canno t be used inter sanchez eably . PSA level s, regar dless of value , shoul d not be inter prete d as absol edwin evide nce of the prese nce or absen ce of [facility]. Not Available [address], [address], 07/26/2022 06:57:31 07/25/20 22 07/26/2022 REFLE XIVE URINE CULTU RE reflexive urine culture NO CULTU RE INDIC ATED Not Available [address], [address], 07/26/2022 06:57:31 07/25/20 22 07/26/2022 URINA LYSIS , COMPL ETE W/REF IBIS TO CULTU RE color yellow yellow normal Not Available [address], [address], 07/26/2022 06:57:30 07/25/20 22 07/26/2022 URINA LYSIS , COMPL ETE W/REF IBIS TO CULTU RE appearance clear clear normal Not Available [address], [address], 07/26/2022 06:57:30 07/25/20 22 07/26/2022 URINA LYSIS , COMPL ETE W/REF IBIS TO CULTU RE specific gravity 1.018 1.001- 1.035 normal Not Available [address], [address], 07/26/2022 06:57:30 07/25/20 22 07/26/2022 URINA LYSIS , COMPL ETE W/REF IBIS TO CULTU RE pH 7.0 5.0-8. 0 normal Not Available [address], [address], 07/26/2022 06:57:30 07/25/20 22 07/26/2022 URINA LYSIS , COMPL ETE W/REF IBIS TO CULTU RE glucose negati ve negati ve normal Not Available [address], [address], 07/26/2022 06:57:30 07/25/20 22 07/26/2022 URINA LYSIS , COMPL ETE W/REF IBIS TO CULTU RE bilirubin negati ve negati ve normal Not Available [address], [address], 07/26/2022 06:57:30 07/25/20 22 07/26/2022 URINA LYSIS , COMPL ETE W/REF IBIS TO CULTU RE ketones negati ve negati ve normal Not Available [address], [address], 07/26/2022 06:57:30 07/25/20 22 07/26/2022 URINA LYSIS , COMPL ETE W/REF IBIS TO CULTU RE occult blood negati ve negati ve normal Not Available [address], [address], 07/26/2022 06:57:30 07/25/20 22 07/26/2022 URINA LYSIS , COMPL ETE W/REF IBIS TO CULTU RE protein negati ve negati ve normal Not Available [address], [address], 07/26/2022 06:57:30 07/25/20 22 07/26/2022 URINA LYSIS , COMPL ETE W/REF IBIS TO CULTU RE nitrite negati ve negati ve normal Not Available [address], [address], 07/26/2022 06:57:30 07/25/20 22 07/26/2022 URINA LYSIS , COMPL ETE W/REF IBIS TO CULTU RE leukocyte esterase negati ve negati ve normal Not Available [address], [address], 07/26/2022 06:57:30 07/25/20 22 07/26/2022 URINA LYSIS , COMPL ETE W/REF IBIS TO CULTU RE WBC none seen /hpf < or = 5 normal Not Available [address], [address], 07/26/2022 06:57:30 07/25/20 22 07/26/2022 URINA LYSIS , COMPL ETE W/REF IBIS TO CULTU RE RBC none seen /hpf < or = 2 normal Not Available [address], [address], 07/26/2022 06:57:30 07/25/20 22 07/26/2022 URINA LYSIS , COMPL ETE W/REF IBIS TO CULTU RE squamous epithelial cells none seen /hpf < or = 5 normal Not Available [address], [address], 07/26/2022 06:57:30 07/25/20 22 07/26/2022 URINA LYSIS , COMPL ETE W/REF IBIS TO CULTU RE bacteria none seen /hpf none seen normal Not Available [address], [address], 07/26/2022 06:57:30 07/25/20 22 07/26/2022 URINA LYSIS , COMPL ETE W/REF IBIS TO CULTU RE hyaline cast none seen /lpf none seen normal Not Available [address], [address], 07/26/2022 06:57:30 07/25/20 22 07/26/2022 CBC (INCL UDES DIFF/ PLT) white blood cell count 7.0 thous and/u L 3.8-10 .8 normal Not Available [address], [address], 07/26/2022 06:57:29 07/25/20 22 07/26/2022 CBC (INCL UDES DIFF/ PLT) red blood cell count 5.14 angel on/uL 4.20-5 .80 normal Not Available [address], [address], 07/26/2022 06:57:29 07/25/20 22 07/26/2022 CBC (INCL UDES DIFF/ PLT) hemoglobin 15.8 g/dL 13.2-1 7.1 normal Not Available [address], [address], 07/26/2022 06:57:29 07/25/20 22 07/26/2022 CBC (INCL UDES DIFF/ PLT) hematocrit 47.2 % 38.5-5 0.0 normal Not Available [address], [address], 07/26/2022 06:57:29 07/25/20 22 07/26/2022 CBC (INCL UDES DIFF/ PLT) MCV 91.8 fL 80.0-1 00.0 normal Not Available [address], [address], 07/26/2022 06:57:29 07/25/20 22 07/26/2022 CBC (INCL UDES DIFF/ PLT) MCH 30.7 pg 27.0-3 3.0 normal Not Available [address], [address], 07/26/2022 06:57:29 07/25/20 22 07/26/2022 CBC (INCL UDES DIFF/ PLT) MCHC 33.5 g/dL 32.0-3 6.0 normal Not Available [address], [address], 07/26/2022 06:57:29 07/25/20 22 07/26/2022 CBC (INCL UDES DIFF/ PLT) RDW 12.2 % 11.0-1 5.0 normal Not Available [address], [address], 07/26/2022 06:57:29 07/25/20 22 07/26/2022 CBC (INCL UDES DIFF/ PLT) platelet count 305 thous and/u L 140-40 0 normal Not Available [address], [address], 07/26/2022 06:57:29 07/25/20 22 07/26/2022 CBC (INCL UDES DIFF/ PLT) MPV 9.6 fL 7.5-12 .5 normal Not Available [address], [address], 07/26/2022 06:57:29 07/25/20 22 07/26/2022 CBC (INCL UDES DIFF/ PLT) absolute neutrophils 4410 cells /uL 1500-7 800 normal Not Available [address], [address], 07/26/2022 06:57:29 07/25/20 22 07/26/2022 CBC (INCL UDES DIFF/ PLT) absolute lymphocytes 1904 cells /uL 850-39 00 normal Not Available [address], [address], 07/26/2022 06:57:29 07/25/20 22 07/26/2022 CBC (INCL UDES DIFF/ PLT) absolute monocytes 539 cells /uL 200-95 0 normal Not Available [address], [address], 07/26/2022 06:57:29 07/25/20 22 07/26/2022 CBC (INCL UDES DIFF/ PLT) absolute eosinophils 98 cells /uL 15-500 normal Not Available [address], [address], 07/26/2022 06:57:29 07/25/20 22 07/26/2022 CBC (INCL UDES DIFF/ PLT) absolute basophils 49 cells /uL 0-200 normal Not Available [address], [address], 07/26/2022 06:57:29 07/25/2007/26/2022 CBC (INCL UDES DIFF/ PLT) neutrophils 63 % normal Not Available [address], [address], 07/26/2022 06:57:29 07/25/2007/26/2022 CBC (INCL UDES DIFF/ PLT) lymphocytes 27.2 % normal Not Available [facility] [address], [address], 07/26/2022 06:57:29 07/25/2007/26/2022 CBC (INCL UDES DIFF/ PLT) monocytes 7.7 % normal Not Available [address], [address], 07/26/2022 06:57:29 07/25/2007/26/2022 CBC (INCL UDES DIFF/ PLT) eosinophils 1.4 % normal Not Available [address], [address], 07/26/2022 06:57:29 07/25/2007/26/2022 CBC (INCL UDES DIFF/ PLT) basophils 0.7 % normal Not Available [address], [address], 07/26/2022 06:57:29 07/25/2007/26/2022 TSH W/REF IBIS TO FT4 TSH w/reflex to FT4 0.98 mIU/L 0.40-4 .50 normal Not Available [address], [address], 07/26/2022 06:57:29 07/25/2007/26/2022 HEMOG LOBIN A1C hemoglobin A1C 5.9 %_of_ total _HGB <5.7 high For someo ne witho ut known diabe jared, a hemog lobin A1c value betwe en 5.7% and 6.4% is consi stent with predi abete s and shoul d be confi rmed with a follo w-up test. For someo ne with known diabe jared, a value <7% indic ates that their diabe jared is well contr olled . A1c targe ts shoul d be indiv idual ized based on durat ion of diabe jared, age, comor bid condi tions , and other consi derat ions. This assay resul t is consi stent with an incre ased risk of diabe jared. Curre ntly, no conse nsus exist s regar ding use of hemog lobin A1c for diagn osis of diabe jared for child norma. Not Available [facility] [address] [address] [place], [address], 07/26/2022 06:57:28 07/25/2007/26/2022 COMPR EHENS JEREL METAB OLIC PANEL glucose 107 mg/dL 65-99 high Fasti ng refer ence inter andrea For someo ne witho ut known diabe jared, a gluco se value betwe en 100 and 125 mg/dL is consi stent with predi abete s and shoul d be confi rmed with a follo w-up test. Not Available [facility] [address] [address] [place], [address], 07/26/2022 06:57:28 07/25/20 22 07/26/2022 COMPR EHENS JEREL METAB OLIC PANEL urea nitrogen (BUN) 16 mg/dL 7-25 normal Not Available [email or web address] [address] [address] [place], [address], 07/26/2022 06:57:28 07/25/20 22 07/26/2022 COMPR EHENS JEREL METAB OLIC PANEL creatinine 1.28 mg/dL 0.60-1 .29 normal Not Available [email or web address] [address] [address] [place], [address], 07/26/2022 06:57:28 07/25/20 22 07/26/2022 COMPR EHENS JEREL METAB OLIC PANEL eGFR 69 mL/mi n/1.7 3m2 > or = 60 normal The eGFR is based on the CKD-E PI 2020 equat ion. To calcu late the new eGFR from a previ ous Creat inine or Cysta tin C resul t, go to https ://brad chen.esme delcid.tal hilario/linda griffinal s/ kdoqi /gfr% 5Fcal culat or Not Available [address] [address] [place], [address], 07/26/2022 06:57:28 07/25/20 22 07/26/2022 COMPR EHENS JEREL METAB OLIC PANEL BUN/creatini ne ratio not applic able (calc ) 6-22 Not Available [address] [address] [place], [address], 07/26/2022 06:57:28 07/25/20 22 07/26/2022 COMPR EHENS JEREL METAB OLIC PANEL sodium 139 mmol/ L 135-14 6 normal Not Available [address], [address], 07/26/2022 06:57:28 07/25/20 22 07/26/2022 COMPR EHENS JEREL METAB OLIC PANEL potassium 4.2 mmol/ L 3.5-5. 3 normal Not Available [email or web address] [address] [address] [place], [address], 07/26/2022 06:57:28 07/25/20 22 07/26/2022 COMPR EHENS JEREL METAB OLIC PANEL chloride 102 mmol/ L 98-110 normal Not Available [email or web address] [address] [address] [place], [address], 07/26/2022 06:57:28 07/25/20 22 07/26/2022 COMPR EHENS JEREL METAB OLIC PANEL carbon dioxide 27 mmol/ L 20-32 normal Not Available [facility] [address] [address], [place], [address], 07/26/2022 06:57:28 07/25/20 22 07/26/2022 COMPR EHENS JEREL METAB OLIC PANEL calcium 10.0 mg/dL 8.6-10 .3 normal Not Available [address], [address], 07/26/2022 06:57:28 07/25/20 22 07/26/2022 COMPR EHENS JEREL METAB OLIC PANEL protein, total 7.8 g/dL 6.1-8. 1 normal Not Available [address], [address], 07/26/2022 06:57:28 07/25/20 22 07/26/2022 COMPR EHENS JEREL METAB OLIC PANEL albumin 4.8 g/dL 3.6-5. 1 normal Not Available [address], [address], 07/26/2022 06:57:28 07/25/20 22 07/26/2022 COMPR EHENS JEREL METAB OLIC PANEL globulin 3.0 g/dL_ (calc ) 1.9-3. 7 normal Not Available [address], [address], 07/26/2022 06:57:28 07/25/20 22 07/26/2022 COMPR EHENS JEREL METAB OLIC PANEL albumin/glob ulin ratio 1.6 (calc ) 1.0-2. 5 normal Not Available [address], [address], 07/26/2022 06:57:28 07/25/20 22 07/26/2022 COMPR EHENS JEREL METAB OLIC PANEL bilirubin, total 0.6 mg/dL 0.2-1. 2 normal Not Available [address], [address], 07/26/2022 06:57:28 07/25/20 22 07/26/2022 COMPR EHENS JEREL METAB OLIC PANEL alkaline phosphatase 88 U/L 36-130 normal Not Available [facility] [employer] [address], [address], 07/26/2022 06:57:28 07/25/20 22 07/26/2022 COMPR EHENS JEREL METAB OLIC PANEL AST 34 U/L 10-40 normal Not Available [address], [address], 07/26/2022 06:57:28 07/25/20 22 07/26/2022 COMPR EHENS JEREL METAB OLIC PANEL ALT 63 U/L 9-46 high Not Available [address], [address], 07/26/2022 06:57:28 07/25/20 22 07/26/2022 LIPID PANEL WITH RATIO S cholesterol, total 187 mg/dL <200 normal Not Available [address], [address], 07/26/2022 06:57:27 07/25/20 22 07/26/2022 LIPID PANEL WITH RATIO S HDL cholesterol 50 mg/dL > or = 40 normal Not Available [address], [address], 07/26/2022 06:57:27 07/25/20 22 07/26/2022 LIPID PANEL WITH RATIO S triglyceride s 273 mg/dL <150 high If a non-f astin g speci men was colle cted, consi casper repea t trigl yceri de testi ng on a fasti ng speci men if clini butch indic ated. Naga chavira et al. J. of Clin. Lipid ol. 2015; 9:129 -169. Not Available [address], [address], 07/26/2022 06:57:27 07/25/20 22 07/26/2022 LIPID PANEL WITH RATIO S LDL-choleste rol 98 mg/dL _(reg c) normal Refer ence range : <100 Birdie able range <100 mg/dL for prima ry preve ntion ; <70 mg/dL for patie nts with CHD or diabe tic patie nts with > or = 2 CHD risk facto rs. LDL-C is now calcu lated using the Cesia n-Hop kins calcu fahad n, which is a valid ated novel metho d provi ding jg r accur acy than the Fried vi equat ion in the estim ation of LDL-C . Cesia preston SS et al. MIKE. 2013; 310(1 9): 2061- 2068 (http ://ed ucati on.Qu constantineARYx [employer]. com/f aq/FA Q164) Not Available [facility] [address] [place], [address], 07/26/2022 06:57:27 07/25/20 22 07/26/2022 LIPID PANEL WITH RATIO S chol/HDLC ratio 3.7 (calc ) <5.0 normal Not Available [facility] [address] [place] [address], [address], 07/26/2022 06:57:27 07/25/20 22 07/26/2022 LIPID PANEL WITH RATIO S LDL/HDL ratio 2.0 (calc ) Below Harrington ge Risk: <2.28 Harrington ge Risk: 2.29- 4.90 Moder ate Risk: 4.91- 7.12 High Risk: >7.13 Not Available [facility] [address] [place], [address], 07/26/2022 06:57:27 07/25/20 22 07/26/2022 LIPID PANEL WITH RATIO S non HDL cholesterol 137 mg/dL _(reg c) <130 high For patie nts with diabe jared plus 1 major ASCVD risk facto r, treat ing to a non-H DL-C goal of <100 mg/dL (LDL- C of <70 mg/dL ) is consi dered a thera pecarmina aguilar optio n. Not Available [address] [address] [place], [address], 07/26/2022 06:57:27 07/09/20 23 07/10/2023 LIPID PANEL WITH RATIO S cholesterol, total 187 mg/dL <200 normal Not Available [address] [address] [place], [address], 07/10/2023 03:59:39 07/09/2007/10/2023 LIPID PANEL WITH RATIO S HDL cholesterol 59 mg/dL > or = 40 normal Not Available [address] [address] [place], [address], 07/10/2023 03:59:39 07/09/20 23 07/10/2023 LIPID PANEL WITH RATIO S triglyceride s 153 mg/dL <150 high Not Available [address], [address], 07/10/2023 03:59:39 07/09/2007/10/2023 LIPID PANEL WITH RATIO S LDL-choleste rol 103 mg/dL _(reg c) high Refer ence range : <100 Birdie able range <100 mg/dL for prima ry preve ntion ; <70 mg/dL for patie nts with CHD or diabe tic patie nts with > or = 2 CHD risk facto rs. LDL-C is now calcu lated using the Cesia n-Hop kins calcu latdanielle n, which is a valid ated novel metho d clay lee than the Fried vi equat ion in the estim ation of LDL-C . Cesia preston SS et al. MIKE. 2013; 310(1 9): 2061- 2068 (http ://ed ucati on.Qu estDi davonos tics. com/f aq/FA Q164) Not Available [address] [address] [place], [address], 07/10/2023 03:59:39 07/09/2007/10/2023 LIPID PANEL WITH RATIO S chol/HDLC ratio 3.2 (calc ) <5.0 normal Not Available [facility] [address] [place] [address], [address], 07/10/2023 03:59:39 07/09/2007/10/2023 LIPID PANEL WITH RATIO S LDL/HDL ratio 1.7 (calc ) Below Harrington ge Risk: <2.28 Harrington ge Risk: 2.29- 4.90 Moder ate Risk: 4.91- 7.12 High Risk: >7.13 Not Available [facility] [address], [address], 07/10/2023 03:59:39 07/09/2007/10/2023 LIPID PANEL WITH RATIO S non HDL cholesterol 128 mg/dL _(reg c) <130 normal For patie nts with diabe jared plus 1 major ASCVD risk facto r, treat ing to a non-H DL-C goal of <100 mg/dL (LDL- C of <70 mg/dL ) is consi dered a thera peuti c optio n. Not Available [address], [address], 07/10/2023 03:59:39 07/09/2007/10/2023 COMPR EHENS JEREL METAB OLIC PANEL glucose 103 mg/dL 65-99 high Fasti ng refer ence inter andrea For someo ne witho ut known diabe jared, a gluco se value betwe en 100 and 125 mg/dL is consi stent with predi abete s and shoul d be confi rmed with a follo w-up test. Not Available [facility] [address] [address] [place], [address], 07/10/2023 03:59:41 07/09/2007/10/2023 COMPR EHENS JEREL METAB OLIC PANEL urea nitrogen (BUN) 13 mg/dL 7-25 normal Not Available [address] [address] [place], [address], 07/10/2023 03:59:41 07/09/20 23 07/10/2023 COMPR EHENS JEREL METAB OLIC PANEL creatinine 1.30 mg/dL 0.70-1 .30 normal Not Available [address] [address] [place], [address], 07/10/2023 03:59:41 07/09/20 23 07/10/2023 COMPR EHENS JEREL METAB OLIC PANEL eGFR 67 mL/mi n/1.7 3m2 > or = 60 normal Not Available [address], [address], 07/10/2023 03:59:41 07/09/2007/10/2023 COMPR EHENS JEREL METAB OLIC PANEL BUN/creatini ne ratio SEE NOTE: (calc ) 6-22 Not Repor delphine: BUN and Creat inine are withi n refer ence range . Not Available [address], [address], 07/10/2023 03:59:41 07/09/20 23 07/10/2023 COMPR EHENS JEREL METAB OLIC PANEL sodium 140 mmol/ L 135-14 6 normal Not Available [address] [address] [place], [address], 07/10/2023 03:59:41 07/09/20 23 07/10/2023 COMPR EHENS JEREL METAB OLIC PANEL potassium 4.1 mmol/ L 3.5-5. 3 normal Not Available [address], [address], 07/10/2023 03:59:41 07/09/20 23 07/10/2023 COMPR EHENS JEREL METAB OLIC PANEL chloride 103 mmol/ L 98-110 normal Not Available [address], [address], 07/10/2023 03:59:41 07/09/20 23 07/10/2023 COMPR EHENS JEREL METAB OLIC PANEL carbon dioxide 29 mmol/ L 20-32 normal Not Available [address], [address], 07/10/2023 03:59:41 07/09/2007/10/2023 COMPR EHENS JEREL METAB OLIC PANEL calcium 9.9 mg/dL 8.6-10 .3 normal Not Available [address], [address], 07/10/2023 03:59:41 07/09/2007/10/2023 COMPR EHENS JEREL METAB OLIC PANEL protein, total 7.5 g/dL 6.1-8. 1 normal Not Available [address], [address], 07/10/2023 03:59:41 07/09/20 23 07/10/2023 COMPR EHENS JEREL METAB OLIC PANEL albumin 4.5 g/dL 3.6-5. 1 normal Not Available [address], [address], 07/10/2023 03:59:41 07/09/2007/10/2023 COMPR EHENS JEREL METAB OLIC PANEL globulin 3.0 g/dL_ (calc ) 1.9-3. 7 normal Not Available [address], [address], 07/10/2023 03:59:41 07/09/2007/10/2023 COMPR EHENS JEREL METAB OLIC PANEL albumin/glob ulin ratio 1.5 (calc ) 1.0-2. 5 normal Not Available [address], [address], 07/10/2023 03:59:41 07/09/2007/10/2023 COMPR EHENS JEREL METAB OLIC PANEL bilirubin, total 0.6 mg/dL 0.2-1. 2 normal Not Available [address], [address], 07/10/2023 03:59:41 07/09/2007/10/2023 COMPR EHENS JEREL METAB OLIC PANEL alkaline phosphatase 81 U/L 35-144 normal Not Available [facility] [address] [address] [place], [address], 07/10/2023 03:59:41 07/09/2007/10/2023 COMPR EHENS JEREL METAB OLIC PANEL AST 47 U/L 10-35 high Not Available [address] [address] [place], [address], 07/10/2023 03:59:41 07/09/2007/10/2023 COMPR EHENS JEREL METAB OLIC PANEL ALT 84 U/L 9-46 high Not Available [email or web address] [address], [address], 07/10/2023 03:59:41 07/09/2007/10/2023 HEMOG LOBIN A1C hemoglobin A1C 5.6 %_of_ total _HGB <5.7 normal For the purpo se of neno abraham for the prese nce of diabe jared: <5.7% Consi stent with the absen ce of diabe jared 5.7-6 .4% Consi stent with incre ased risk for diabe jared (pred iabet es) > or =6.5% Consi stent with diabe jared This assay resul t is consi stent with a decre ased risk of diabe jared. Curre ntly, no conse nsus exist s walter miner use of hemog lobin A1c for diagn osis of diabe jared in child norma. Accor ding to Ameri can Diabe jared Assoc iatio n (ADA) guide lines , hemog lobin A1c <7.0% repre sents optim al contr ol in non-p regna nt diabe tic patie nts. Diffe rent metri cs may apply to speci fic patie nt popul ation s. Stand ards of Medic al Care in Diabe jared(A DA). Not Available [facility] [address] [address] [place], [address], 07/10/2023 04:00:13 07/09/2007/10/2023 CBC (INCL UDES DIFF/ PLT) white blood cell count 6.5 thous and/u L 3.8-10 .8 normal Not Available [facility] [address] [place], [address], 07/10/2023 04:00:14 07/09/2007/10/2023 CBC (INCL UDES DIFF/ PLT) red blood cell count 5.03 angel on/uL 4.20-5 .80 normal Not Available [facility] [address], [address], 07/10/2023 04:00:14 07/09/20 23 07/10/2023 CBC (INCL UDES DIFF/ PLT) hemoglobin 15.7 g/dL 13.2-1 7.1 normal Not Available [address], [address], 07/10/2023 04:00:14 07/09/2007/10/2023 CBC (INCL UDES DIFF/ PLT) hematocrit 45.6 % 38.5-5 0.0 normal Not Available [facility] [address], [address], 07/10/2023 04:00:14 07/09/2007/10/2023 CBC (INCL UDES DIFF/ PLT) MCV 90.7 fL 80.0-1 00.0 normal Not Available [facility] [address], [address], 07/10/2023 04:00:14 07/09/2007/10/2023 CBC (INCL UDES DIFF/ PLT) MCH 31.2 pg 27.0-3 3.0 normal Not Available [address], [address], 07/10/2023 04:00:14 07/09/2007/10/2023 CBC (INCL UDES DIFF/ PLT) MCHC 34.4 g/dL 32.0-3 6.0 normal Not Available [address], [address], 07/10/2023 04:00:14 07/09/2007/10/2023 CBC (INCL UDES DIFF/ PLT) RDW 12.4 % 11.0-1 5.0 normal Not Available [address], [address], 07/10/2023 04:00:14 07/09/2007/10/2023 CBC (INCL UDES DIFF/ PLT) platelet count 290 thous and/u L 140-40 0 normal Not Available [address], [address], 07/10/2023 04:00:14 07/09/2007/10/2023 CBC (INCL UDES DIFF/ PLT) MPV 10.0 fL 7.5-12 .5 normal Not Available [address] [address], [address], 07/10/2023 04:00:14 07/09/2007/10/2023 CBC (INCL UDES DIFF/ PLT) absolute neutrophils 3471 cells /uL 1500-7 800 normal Not Available [address], [address], 07/10/2023 04:00:14 07/09/2007/10/2023 CBC (INCL UDES DIFF/ PLT) absolute lymphocytes 2236 cells /uL 850-39 00 normal Not Available [address], [place], [address], 07/10/2023 04:00:14 07/09/2007/10/2023 CBC (INCL UDES DIFF/ PLT) absolute monocytes 572 cells /uL 200-95 0 normal Not Available [facility] [address], [address], 07/10/2023 04:00:14 07/09/2007/10/2023 CBC (INCL UDES DIFF/ PLT) absolute eosinophils 150 cells /uL 15-500 normal Not Available [facility] [address], [address], 07/10/2023 04:00:14 07/09/2007/10/2023 CBC (INCL UDES DIFF/ PLT) absolute basophils 72 cells /uL 0-200 normal Not Available [facility] [address], [address], 07/10/2023 04:00:14 07/09/2007/10/2023 CBC (INCL UDES DIFF/ PLT) neutrophils 53.4 % normal Not Available [facility] [address], [address], 07/10/2023 04:00:14 07/09/2007/10/2023 CBC (INCL UDES DIFF/ PLT) lymphocytes 34.4 % normal Not Available [facility] [address], [address], 07/10/2023 04:00:14 07/09/2007/10/2023 CBC (INCL UDES DIFF/ PLT) monocytes 8.8 % normal Not Available [facility] [address], [address], 07/10/2023 04:00:14 07/09/2007/10/2023 CBC (INCL UDES DIFF/ PLT) eosinophils 2.3 % normal Not Available [facility] [address] [place], [address], 07/10/2023 04:00:14 07/09/20 23 07/10/2023 CBC (INCL UDES DIFF/ PLT) basophils 1.1 % normal Not Available [address], [address], 07/10/2023 04:00:14 09/20/19 24 09/21/2023 HEPAT ITIS PANEL , ACUTE W/REF IBIS TO CONFI RMATI ON hepatitis A IgM NON-RE ACTIVE non-re active normal For addit ional infor yousif gaines e refer to http: //michael pantojaque [employer]ia gn[employer].c om/fa q/FAQ 202 (This link is being provi ded for infor matio nal/ educa liam l purpo ses only. ) Not Available [address], [address], 09/21/2023 08:10:27 09/20/19 24 09/21/2023 HEPAT ITIS PANEL , ACUTE W/REF IBIS TO CONFI RMATI ON hepatitis B surface antigen NON-RE ACTIVE non-re active normal For addit ional infor yousif gaines e refer to http: //michael pantojaque [employer]ia gn[employer].c om/fa q/FAQ 202 (This link is being provi ded for infor matio nal/ educa liam l purpo ses only. ) Not Available [address], [address], 09/21/2023 08:10:27 09/20/19 24 09/21/2023 HEPAT ITIS PANEL , ACUTE W/REF IBIS TO CONFI RMATI ON hepatitis B core antibody (IgM) NON-RE ACTIVE non-re active normal For addit ional infor yousif gaines e refer to http: //michael pantojaque [employer]ia gn[employer].c om/fa q/FAQ 202 (This link is being provi ded for infor matio nal/ educa liam l purpo ses only. ) Not Available [address], [address], 09/21/2023 08:10:27 09/20/19 24 09/21/2023 HEPAT ITIS PANEL , ACUTE W/REF IBIS TO CONFI RMATI ON hepatitis C antibody NON-RE ACTIVE non-re active normal HCV antib theresa was non-r eacti ve. There is no labor atory evide nce of HCV infec tion. In most cases , no furth er actio n is requi red. Howev er, if recen t HCV expos ure is suspe cted, a test for HCV RNA (test code 01262 ) is suggenet sted. For addit ional infor ruel dodd e refer to http: //[facility] jorge a rosales stdia gnost ics.c om/fa q/FAQ 22v1 (This link is being provi ded for infor ruel claudio/ educa liam l purpo ses only. ) Not Available [address] [facility], [place], [address], 09/21/2023 08:10:27 09/20/19 24 09/21/2023 HEPAT IC FUNCT ION PANEL protein, total 7.3 g/dL 6.1-8. 1 normal Not Available [facility] [address] [place] [address] [place], [address], 09/21/2023 08:10:28 09/20/19 24 09/21/2023 HEPAT IC FUNCT ION PANEL albumin 4.4 g/dL 3.6-5. 1 normal Not Available [facility] [address], [address], 09/21/2023 08:10:28 09/20/19 24 09/21/2023 HEPAT IC FUNCT ION PANEL globulin 2.9 g/dL_ (calc ) 1.9-3. 7 normal Not Available [facility] [address] [address] [place], [address], 09/21/2023 08:10:28 09/20/19 24 09/21/2023 HEPAT IC FUNCT ION PANEL albumin/glob ulin ratio 1.5 (calc ) 1.0-2. 5 normal Not Available [address], [address], 09/21/2023 08:10:28 09/20/19 24 09/21/2023 HEPAT IC FUNCT ION PANEL bilirubin, total 0.5 mg/dL 0.2-1. 2 normal Not Available [address], [address], 09/21/2023 08:10:28 09/20/19 24 09/21/2023 HEPAT IC FUNCT ION PANEL bilirubin, direct 0.1 mg/dL < or = 0.2 normal Not Available [address], [address], 09/21/2023 08:10:28 09/20/19 24 09/21/2023 HEPAT IC FUNCT ION PANEL bilirubin, indirect 0.4 mg/dL _(reg c) 0.2-1. 2 normal Not Available [address], [address], 09/21/2023 08:10:28 09/20/19 24 09/21/2023 HEPAT IC FUNCT ION PANEL alkaline phosphatase 93 U/L 35-144 normal Not Available [facility] [place] [address] [place], [address], 09/21/2023 08:10:28 09/20/19 24 09/21/2023 HEPAT IC FUNCT ION PANEL AST 66 U/L 10-35 high Not Available [address], [address], 09/21/2023 08:10:28 09/20/19 24 09/21/2023 HEPAT IC FUNCT ION PANEL ALT 146 U/L 9-46 high Not Available [email or web address] [address] [place], [address], 09/21/2023 08:10:28 09/20/19 24 09/21/2023 GGT GGT 68 U/L 3-95 normal Not Available [email or web address] [facility] [address] [place], [address], 09/21/2023 08:10:29 09/20/19 24 09/21/2023 PSA, TOTAL PSA, total 1.00 NG/mL < or = 4.00 normal The total PSA value from this assay syste m is stand ardiz ed again st the WHO stand dwight. The test resul t will be appro ximat heaven 20% lower when donnie red to the equim olar- stand ardiz ed total PSA (Escobar man Coult er). Donnie rison of seria l PSA resul ts shoul d be inter prete d with this fact in mind. This test was perfo rmed using the [employer] chemi lumin escen t metho d. Value s obtai camron from diffe rent assay metho ds canno t be used inter sanchez eably . PSA level s, regar dless of value , shoul d not be inter prete d as absol edwin evide nce of the prese nce or absen ce of disea se. Not Available [email or web address] [facility] [address] [place], [address], 09/21/2023 08:10:30 01/18/20 23 08/31/2022 colon oscop y scree leigh (PROC ) No observ ation record ed. [address] (Medical Records) [address], [place], [address], 01/21/2023 15:45:26 07/23/20 23 02/19/2023 XR, forea rm No observ ation record ed. [address], [place], [address], 07/24/2023 16:33:15 08/01/2007/29/2023 US, liver No observ ation record ed. [email or web address] [facility] ([facility]) [address], [place], [address], 08/30/2023 11:55:42 Result Notes None recorded. Problems Name Problem SNOMED Code Status Onset Date Resolution Date Notes Provider Name and Address Organization Details Recorded Time Generalize d anxiety disorder 22171940 Active 2019 Not Available [facility] 3 18:11:37 Apnea 7788709 Active 2020 Not Available [facility] 3 18:11:37 Benign essential hypertensi on 4399125 Active 2020 Not Available [facility] 3 18:11:37 Depressive disorder 48218999 Active 2021 Not Available [facility] 3 18:11:37 Obstructiv e sleep apnea syndrome 98780779 Active 2021 Not Available [facility] 3 18:11:37 Injury of right lower leg 7077474937781 9109 Active 2021 Not Available [facility] 3 18:11:37 Injury of right knee 6076010562312 4107 Active 2021 Not Available [facility] 3 18:11:37 Effusion of joint of right knee 3857027543312 04 Active 2021 Not Available [facility] 3 18:11:37 Infection of prepatella r bursa of right knee 3140430822148 105 Active 2021 Not Available [facility] 3 18:11:37 Pain of right knee joint 0708293023249 00 Active 2021 Not Available [facility] 3 18:11:37 Allergic rhinitis 84302347 Active 2021 Not Available [facility] 3 18:11:37 COVID-19 397873220 Active 2021 Not Available [facility] 3 18:11:37 Acute sinusitis 58491406 Active 2022 Not Available [facility] 3 18:11:37 Impaired glucose tolerance 7004067 Active 2022 PADMINI Castellano [address], [place], [address] , [employer] [facility] [employer] [facility] 3 15:30:46 Hypertrigl yceridemia 670161186 Active 2022 PADMINI Castellano [address] [facility], [place], [address] , [employer] [facility] [employer] [facility] 3 15:30:50 Low back pain 067085513 Active 2022 PADMINI Castellano [address] [facility], [place], [address] , [employer] [facility] [employer] [facility] 3 12:54:22 Dog bite of hand 402808728 Active 2022 PADMINI Castellano [address], [place], [address] , [employer] [facility] [employer] [facility] 3 23:26:43 Cellulitis of right upper limb 7023568898083 9107 Active 2022 PADMINI Castellano [address], [place], [address] , [employer] [facility] [employer] [facility] 3 23:55:10 Prostate specific antigen above reference range 396842066 Active 2022 PADMINI Castellano [address], [place], [address] , [employer] [facility] [employer] [facility] 3 12:27:37 Liver enzymes level above reference range 443968604 Active 2022 PADMINI Castellano [address], [place], [address] , [employer] [facility] [employer] [facility] 3 12:28:06 Problem Notes None recorded. Medical Equipment None Reported. Allergies No known drug allergies Medications Name Sig Start Date Stop Date Status Note LastModified by Organization Details LastModified Time cyclobenzap rine 10 mg tablet TK 1/2 T PO TID PRN active Not Available Not Available No t Available amoxicillin 500 mg capsule TAKE 1 CAPSULE BY MOUTH THREE TIMES DAILY UNTIL ALL TAKEN active Not Available Not Available No t Available neomycin-po lymyxin-hyd rocort 3.5 mg/mL-10,00 0 unit/mL-1 % ear solution 09/02 completed Not Available Not Available Not Available tizanidine 2 mg tablet 09/02 completed Not Available Not Available Not Available citalopram 40 mg tablet TAKE 1 TABLET BY MOUTH EVERY DAY 01/07 completed Not Available Not Available Not Available valacyclovi r 1 gram tablet 09/02 completed Not Available Not Available Not Available meloxicam 15 mg tablet 11/15 completed Not Available Not Available Not Available sertraline 100 mg tablet TAKE 1 TABLET BY MOUTH EVERY DAY AT BEDTIME active Not Available Not Available No t Available amlodipine 5 mg tablet TAKE 1 TABLET BY MOUTH EVERY DAY active Not Available Not Available No t Available sulfamethox azole 800 mg-trimetho prim 160 mg tablet TAKE 1 TABLET BY MOUTH EVERY 12 HOURS 07/06 completed Not Available Not Available Not Available omeprazole 40 mg capsule,del ayed release active Not Available Not Available Not Available lamotrigine 25 mg tablet 09/02 completed Not Available Not Available Not Available amoxicillin 875 mg tablet TAKE 1 TABLET BY MOUTH TWICE DAILY UNTIL ALL TAKEN 01/04 completed Not Available Not Available Not Available alprazolam 0.25 mg tablet TAKE 1 TABLET BY MOUTH EVERY DAY NEEDED active Not Available Not Available No t Available citalopram 20 mg tablet 01/07 completed Not Available Not Available Not Available methocarbam ol 750 mg tablet TAKE 1 TABLET BY MOUTH THREE TIMES DAILY NEEDED active Not Available Not Available No t Available amlodipine 10 mg tablet active Not Available Not Available Not Available calcipotrie ne 0.005 % topical cream 11/06 completed Not Available Not Available Not Available sertraline 25 mg tablet 01/07 completed Not Available Not Available Not Available halobetasol propionate 0.05 % topical cream 11/06 completed Not Available Not Available Not Available clobetasol 0.05 % topical ointment 11/15 completed Not Available Not Available Not Available ibuprofen 600 mg tablet Take 1 tablet every day by oral route for 7 days. active Not Available Not Available No t Available calcipotrie ne 0.005 % scalp solution APPLY TO SCALP TWICE DAILY SATURDAY TO SATURDAY active Not Available Not Available No t Available methylpredn isolone 4 mg tablets in a dose pack FOLLOW PACKAGE DIRECTION S 01/04 completed Not Available Not Available Not Available clobetasol 0.05 % scalp solution active Not Available Not Available Not Available fluticasone propionate 50 mcg/actuati on nasal spray,suspe nsion SHAKE LIQUID AND USE 2 SPRAYS IN EACH NOSTRIL DAILY active Not Available Not Available No t Available naproxen 500 mg tablet Take 1 tablet twice a day by oral route with meals. active Not Available Not Available No t Available amoxicillin 875 mg-potassiu m clavulanate 125 mg tablet TAKE 1 TABLET BY MOUTH EVERY 12 HOURS 07/16 completed Not Available Not Available Not Available aripiprazol e 5 mg tablet TAKE 1 TABLET BY MOUTH EVERY DAY 07/17 completed Not Available Not Available Not Available bupropion HCl XL 150 mg 24 hr tablet, extended release Take 1 tablet every day by oral route. active Not Available Not Available No t Available Humira one injection every 2 weeks. 03/17 completed Not Available Not Available Not Available aripiprazol e 2 mg tablet TAKE 1 TABLET BY MOUTH EVERY DAY active Not Available Not Available No t Available Humira(CF) 40 mg/0.4 mL subcutaneou s syringe kit active Not Available Not Available Not Available Humira(CF) Pen 40 mg/0.4 mL subcutaneou s kit active Not Available Not Available Not Available Humira(CF) Pen Ps-Uv-Adol HS 80 mg/0.8 mL(1)-40 mg/0.4 mL(2)subcut kit 01/07 completed Not Available Not Available Not Available BinaxNOW COVID-19 Ag Self Test kit TEST DIRECTED TODAY 11/14 completed Not Available Not Available Not Available Paxlovid 300 mg (150 mg x 2)-100 mg tablets in a dose pack FOLLOW PACKAGE DIRECTION S 11/14 completed Not Available Not Available Not Available Vitals Date Recorded Body height Body temperature Body mass index (BMI) Body weight Respiratory rate Oxygen saturation Oxygen saturation in Arterial blood by Pulse oximetry Heart rate Systolic And Diastolic Provider Name and Address Organization Details Last Updated DateTime 3 187.96 cm 97 [degF] 32.9 kg/m2 911961. 65 g 16 /min 96 % 96 % 105 /min 128/80 mm[Hg] ETHAN Bowers [employer] [facility] 3 12:26:48 Date Recorded Body height Body temperature Body mass index (BMI) Body weight Respiratory rate Oxygen saturation Oxygen saturation in Arterial blood by Pulse oximetry Heart rate Systolic And Diastolic Provider Name and Address Organization Details Last Updated DateTime 3 187.96 cm 96.8 [degF] 33.4 kg/m2 210377. 81 g 16 /min 96 % 96 % 103 /min 132/90 mm[Hg] ETHAN Bowers [employer] [facility] 3 15:28:01 Date Recorded Body height Body mass index (BMI) Body weight Body temperature Heart rate Oxygen saturation Oxygen saturation in Arterial blood by Pulse oximetry Systolic And Diastolic Provider Name and Address Organization Details Last Updated DateTime 3 187.96 cm 34 kg/m2 294376. 98 g 97.2 [degF] 112 /min 98 % 98 % 132/90 mm[Hg] Rosa Lugo RN [facility] [employer] [facility] 3 15:59:51 Date Recorded Body mass index (BMI) Body height Oxygen saturation Oxygen saturation in Arterial blood by Pulse oximetry Heart rate Respiratory rate Body temperature Body weight Systolic And Diastolic Provider Name and Address Organization Details Last Updated DateTime 2 32.9 kg/m2 187.96 cm 96 % 96 % 115 /min 16 /min 97.6 [degF] 825287. 65 g 138/82 mm[Hg] Not Available [facility] 3 10:43:20 Date Recorded Body height Body weight Body temperature Heart rate Oxygen saturation Oxygen saturation in Arterial blood by Pulse oximetry Systolic And Diastolic Provider Name and Address Organization Details Last Updated DateTime 3 187.96 cm 830466. 72 g 98.1 [degF] 89 /min 98 % 98 % 128/90 mm[Hg] Rosa Lugo RN [facility] [employer] [facility] 3 12:24:58 Social History Question Answer Notes LastModified by Organizat ion Details LastModified Time Tobacco Smoking Status Never Smoker Rosa Lugo RN null, [place] [facility] 06/18/2023 15:54:38 Do You Have An Advance Directive? No [id number] Information not available 11/14/2022 What Is Your Level Of Caffeine Consumption? Heavy [id number] Information not available 11/14/2022 In The 14 Days Before Symptom Onset, Have You Had Close Contact With A Laboratory-confirm ed COVID-19 While That Case Was Ill? No [email or web address] Information n ot available 06/18/2023 In The 14 Days Before Symptom Onset, Have You Had Close Contact With A Person Who Is Under Investigation For COVID-19 While That Person Was Ill? No Information not available 06/18/2023 What Type Of Diet Are You Following? REGULAR [id number] Information not available 11/14/2022 Have There Been Any Changes To Your Family Or Social Situation? No [email or web address] Information no t available 06/18/2023 Do You Use Insect Repellent Routinely? No [email or web address] Information not available 06/18/2023 Do You Have A Medical Power Of Respiratory Supervisor? No [email or web address] Information not available 06/18/2023 What Is Your Relationship Status? [id number] Information not available 11/14/2022 Do You Use Your Seat Belt Or Car Seat Routinely? Yes [email or web address] Information not available 06/18/2023 Do You Have Smoke And Carbon Monoxide Detectors In Your Home? Yes [email or web address] Information not available 06/18/2023 Do You Use Sunscreen Routinely? Yes [email or web address] Information not available 06/18/2023 Have You Recently Traveled Abroad? No [email or web address] Information not available 06/18/2023 Do You Have Any Dietary Restrictions? No [email or web address] Information not available 06/18/2023 Sex: Unknown Functional Status Question Answer Note LastModified by Organizat ion Details LastModified Time Do you use any illicit or recreational drugs? No [email or web address] Information not available 06/18/2023 Do you or have you ever used any other forms of tobacco or nicotine? No [email or web address] Information not available 06/18/2023 What is your level of alcohol consumption? Moderate [id number] Information not available 11/14/2022 Are you currently employed? 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 Family History Relationship Description Onset Age of this Age Resolved Age Notes LastModified by Organization Details LastModified Time Father Chronic obstructive pulmonary disease [id number] Not available 11/14/2022 10:42:39 Father Malignant neoplasm of lung [id number] Not available 11/14/2022 10:42:39 Father Atrial fibrillation [id number] Not available 11/14/2022 10:42:39 Medical History Condition Response SKIN PROBLEMS Y ANXIETY DISORDER Y DEPRESSION (INCLUDING POST ) Y Past Encounters Encounter ID Performer Location Encounter Start Date Encounter Closed Date Diagnosis/Indication Diagnosis SNOMED-CT Code Diagnosis ICD10 Code Diagnosis Note [id number] PADMINI Castellano [facility] [place] [address] [place] [address] 03/17/2021 00:00:00 04/02/2021 19:33:38 [id number] [facility] [place] [address] [place] [address] 07/07/2021 00:00:00 07/16/2021 21:44:37 [id number] Luis Ray MD [facility] [place] [address] [place] [address] 01/03/2022 00:00:00 01/13/2022 22:16:43 [id number] Luis Ray MD [facility] [place] [address] [place] [address] 03/05/2022 00:00:00 03/14/2022 23:45:08 [id number] Andre Abdi MD [facility] [place] [address] [place] [address] 03/26/2022 00:00:00 03/26/2022 11:52:24 [id number] Andre Abdi MD [facility] [place] [address] [place] [address] 04/09/2022 00:00:00 04/09/2022 10:56:33 [id number] PADMINI Castellano [facility] [place] [address] [facility] [place] [address] 07/09/2022 00:00:00 07/14/2022 14:04:21 [id number] PADMINI Castellano [facility] [place] [address], [address] [place] [address] 11/15/2022 12:19:52 11/15/2022 13:02:43 Acute sinusitis 43169054 J01.90 start amoxicilli n 875mg bid course and MDP [id number] PADMINI Castellano [facility] [place] [address], [address] [place] [address] [place] [address] 01/07/2023 15:20:10 01/07/2023 15:54:23 Benign essential hypertension 8917521 I10 stable on amlodipine 5mg daily Generalize d anxiety disorder 62501495 F41.1 stable on sertraline 100mg qhs Obstructiv e sleep apnea syndrome 52550679 G47.33 stable on cpap therapy Depressive disorder 3548 9007 F32.A improved and feeling good on abilify 5mg daily and sertraline 100mg qhs. Impaired g lucose tolerance 6921324 R73.03 5.9% a1c. lower sugars and carbs. Sugars are biggest issue. Hypertriglyceridemia 302 046740 E78.1 273 on triglyceri kaitlyn. dietary focus and omega 3 fish oil to lower levels. Long-term drug therapy 342104225 Z79.521 [id number] PADMINI Castellano [facility] [place] [address] [place] [address] 06/18/2023 15:54:08 06/18/2023 16:29:28 Impaired glucose tolerance 4284081 R73.03 5.9% a1c. lower sugars and carbs. Sugars are biggest issue. due for updated a1c Hypertriglyceridemia 302 102792 E78.1 on omega 3 fish oil to lower levels. fasting lipids are due now. Long-term drug therapy 710982853 Z79.899 cbc due Cellulitis of right upper limb 1720168171 5343376 L03.113 on oral abx and improving as expected. continue full course of abx therapy. [id number] PADMINI Castellano [facility] [place] [address] [place] [address] 07/17/2023 12:19:35 07/17/2023 12:53:21 Prostate specific antigen above reference range 901406667 R97.20 PSA is due jul 25 Liver enzy mes level above reference range 001019252 R74.01 check repeat LFT Panel, hepatitis panel and GGT plus u/s liver prior to end of this month. pt is drinking again , not as much as the past but routinely again. Adult heal th examination 415590979 Z00.01 well exam completed Benign ess ential hypertension 2688996 I10 boost to amlodipine 10mg daily Generalize d anxiety disorder 31056351 F41.1 stable on sertraline 100mg qhs Obstructiv e sleep apnea syndrome 05274618 G47.33 stable on cpap therapy Depressive disorder 3548 9007 F32.A stable and feeling good on abilify 5mg daily and sertraline 100mg qhs. Impaired g lucose tolerance 0209981 R73.03 5.6% a1c. improvemen t Hypertriglyceridemia 302 288144 E78.1 153 on triglyceri kaitlyn. improved from 253 range. Long-term drug therapy 694521711 Z79.899 Health Concerns Section Related Observation LastModified by Organization Detai ls LastModified Time None Recorded Concern Status LastModified by Organization Details LastModified Time None Recorded Advance Directives Directive N: Payers Insurance Date Sequence Insurance Name Policy Number Policy Pizano Covered Member ID Pizano Member ID Guarantor Name 07/17/2023 1 GRACIELA-SYLVIA (PPO) [id number] Be Georges [id number] [address] Notes Date Note Type Note Provider Name and Address Organization Details Recorded Time 3 text/html Allergy/sinusitisReporte d by PatientHPIFor location, patient reportsthick phlegm in throat,constantly clearing the throat,nasal discharge from both nostrils, andear fullnessbut reportsno headache,no facial pain,no sinus pain,no sore throat,no nasal discharge,no nasal passage blockage,no nasal itching,no eye itching,no pain behind the eyes, andno skin itching. For quality, patient reportscongested,colored phlegm, andproductive coughbut reportsno pain,no itching,no hoarseness,no throbbing,minimal discomfort, andimproving. For severity, patient reportsfrequent breathing through the mouthbut reportsno pain,does not limit daily activities,no nosebleeds (epistaxis),no snoring, andcurrent pain 2/10. For associated symptoms, patient reportsnasal dischargebut reportsno fever,no weight loss,no hemoptysis,no hematemesis,no difficulty breathing,no feeling of strangulation, andno nausea or vomiting. For onset/timing, patient reportsrecurringandiniti ally started 3weeks ago. For duration, patient reportscontinuous. For context, patient reportsno recent upper respiratory infection,no recent sick contacts,not worse with seasonal allergen exposure,not worse around animals,not worse around pollen,not worse around dust,not worse around molds,not worse with environmental exposure,not worse when mowing grass,not worse with certain foods, andnot worse with odors. For risk factors, patient reportsno current smoking or tobacco use,no history of smoking,no increased stress,no family history of allergies,no history of nasal trauma,no allergy to aspirin, andno history of nasal polyps. For aggravating factors, patient reportsnot worse with change in medication,not worse during an upper respiratory infection (a cold), andnot worse when allergies are active. For alleviating factors, (not taking anything for sx right now. but he was taking sudafed.). PADMINI Castellano [address] [facility], [facility] [address], [place], [address], [facility] [employer] 12/02/2022 14:26:24 3 text/html Obstructive Sleep Apnea F/UReported by PatientHPIFor location, patient reportsdryness of mouthbut reportsno enlarged tonsils,no nasal passage blockage,no throat pain,no feeling of tightness in throat, andno chest congestion. For quality, patient reportsno loud snoring,no gasping for air,no witnessed apnea,no hyponasal speech, andno frequent breathing through the mouth. For onset/timing, patient reportschronic. For duration, patient reportscontinuous. For severity, patient reportsdoes not limit daily activities,no frequent sore throats resulting in excess missed days from school / work per year,no difficulty getting going in the morning, andno awakening in the middle of the night with sore throat. For context, patient reportsno lack of adequate sleep,no shift work,not currently taking medication to help sleep,no recent weight gain,no recent upper respiratory infection,no recent sick contacts,not worse with environmental exposure,not worse with seasonal allergen exposure,no hypertension, andnormal sleep hours. For alleviating factors, patient reportsrelief with cpap. For aggravating factors, patient reportsnot worse during an upper respiratory infection (a cold)andnot worse when allergies are active. For associated symptoms, patient reportsno morning headache,no awakening at night short of breath,no sweating heavily at night,no excessive sleepiness during the day,no suddenly falling asleep during the day,no napping,no impaired work performace, andno nasal congestion. HypertensionReported by PatientHPIFor duration, patient reportshas noted for years. For onset/timing, patient reportsbetter. For alleviating factors, patient reportsmedication. For associated symptoms, patient reportsno shortness of breath,no fatigue,no palpitations,no decline in exercise capacity, andno snoring. Anxiety/DepressionReport ed by PatientHPIFor severity, patient reportsdenies suicidal ideations,able to maintain relationships, anddoes not interfere with activities of daily living. For context, patient reportsno major life stressors. For associated symptoms, patient reportsdenies homicidal ideations,no significant weight gain,no significant weight loss,no visual/auditory hallucinations,no delusions, andno shortness of breath. For quality, (stable right now.). For onset/timing, (stable). For modifying factors, (rx).pt is seeing pyschiatry and stable on medications, feeling very good. PADMINI Castellano [address] [facility], [facility] [address], [place], [address], [facility] [employer] 01/09/2023 22:40:48 10/03/202 3 text/html Generic HPI TemplateReported by Patient Pt states he went to the e/r on Saturday at [facility] he was having pain in R arm and having fever. They did tests at the e/r and told him that his WBC was elevated and told him he had infection in his arm. They gave him fluid and iv through abx. They sent him home on augmentin as well. He is feeling better and swelling has decreased but it is still red in a couple areas and warm to touch. He was given the options to be admitted or f/u w/ us today. e/r records are NOT signed off on yet.ER labs in room PADMINI Castellano [address] [facility], [facility] [address], [place], [address], [facility] 07/15/2023 23:56:11 3 text/html Obstructive Sleep Apnea F/UReported by PatientHPIFor location, patient reportsdryness of mouthbut reportsno enlarged tonsils,no nasal passage blockage,no throat pain,no feeling of tightness in throat, andno chest congestion. For quality, patient reportsno loud snoring,no gasping for air,no witnessed apnea,no hyponasal speech, andno frequent breathing through the mouth. For onset/timing, patient reportschronic. For duration, patient reportscontinuous. For severity, patient reportsdoes not limit daily activities,no frequent sore throats resulting in excess missed days from school / work per year,no difficulty getting going in the morning, andno awakening in the middle of the night with sore throat. For context, patient reportsno lack of adequate sleep,no shift work,not currently taking medication to help sleep,no recent weight gain,no recent upper respiratory infection,no recent sick contacts,not worse with environmental exposure,not worse with seasonal allergen exposure,no hypertension, andnormal sleep hours. For alleviating factors, patient reportsrelief with cpap. For aggravating factors, patient reportsnot worse during an upper respiratory infection (a cold)andnot worse when allergies are active. For associated symptoms, patient reportsno morning headache,no awakening at night short of breath,no sweating heavily at night,no excessive sleepiness during the day,no suddenly falling asleep during the day,no napping,no impaired work performace, andno nasal congestion. HypertensionReported by PatientHPIFor duration, patient reportshas noted for years. For onset/timing, patient reportsbetter. For alleviating factors, patient reportsmedication. For associated symptoms, patient reportsno shortness of breath,no fatigue,no palpitations,no decline in exercise capacity, andno snoring. Anxiety/DepressionReport ed by PatientHPIFor severity, patient reportsdenies suicidal ideations,able to maintain relationships, anddoes not interfere with activities of daily living. For context, patient reportsno major life stressors. For associated symptoms, patient reportsdenies homicidal ideations,no significant weight gain,no significant weight loss,no visual/auditory hallucinations,no delusions, andno shortness of breath. For quality, (stable right now.). For onset/timing, (stable). For modifying factors, (rx).pt is seeing pyschiatry and stable on medications, feeling very good. wellnesspt having foot surgery 09/10 - PADMINI Donald [address] [facility], [facility] [address], [place], [address], [facility] 07/17/2023 12:57:08
--- OUTSIDE RECORDS SUMMARY | 2025-04-10 07:31 | XMS_ITS | Clinical Summary ---
Author Organization [facility] Address [facility] [place] [address] Care Team Providers Care Research Physiologist Name Role Phone Davy Bobo Primary Care Provider [phone] Allergies No known active allergies Medications cyclobenzaprine 10 MG tablet Take 0.5 tablets (5 mg total) by mouth 3 (three) times daily as needed. 16 tablet 05/20/2020 Active Encounters Date Type Department Care Team Description 03/18/2025 8:00 AM CDT - 03/18/2025 11:59 PM CDT Hospital Encounter [facility] [address] [place] [address] Davy Bobo PA Discharge Disposition: Home or Self Care (Routine Discharge) 03/18/2025 Travel from Last 3 Months Social History Tobacco Use Types Packs/Day Years Used Date Smoking Tobacco: Never Smokeless Tobacco: Never Sex and Gender Information Value Date Recorded Sex Assigned at Not on file Legal Sex Male 6:31 PM CDT Gender Identity Not on file Sexual Orientation Not on file Last Filed Vital Signs Vital Sign Reading Time Taken Comments Blood Pressure 146/112 06/25/2023 9:26 PM CDT Pulse 113 06/25/2023 9:26 PM CDT Temperature 36.9 C (98.4 F) 06/25/2023 9:26 PM CDT Respiratory Rate 20 06/25/2023 9:26 PM CDT Oxygen Saturation 100% 06/25/2023 9:26 PM CDT Inhaled Oxygen Concentration - - Weight 106.6 kg (235 lb) 05/20/2020 11:46 AM CDT Height 188 cm (6' 2) 05/20/2020 11:46 AM CDT Body Mass Index 30.17 05/20/2020 11:46 AM CDT Plan of Treatment Health Maintenance Due Date Last Done Comments Colorectal Cancer Screening Colonoscopy (10 Years) 1973 Annual Physical 1976 Hepatitis C 1991 Hepatitis B Vaccines (1 of 3 - 19+ 3-dose series) 1992 Pneumococcal Vaccine: 50+ Years (1 of 1 - PCV) 2023 Zoster Vaccines (1 of 2) 2023 COVID-19 Vaccine (5 - season) 2024 12/28/2022, 08/22/2021, 12/19/2020, Additional history exists DTaP, Tdap and Td Vaccines (2 - Td or Tdap) 06/15/2033 06/15/2023 Meningococcal B Vaccine Aged Out No l onger eligible based on patient's age to complete this topic Meningococcal Vaccine Aged Out No steve clarissa eligible based on patient's age to complete this topic RSV Immunizations Under 20 Months Aged Out No longer eligible based on patient's age to complete this topic Procedures Procedure Name Priority Date/Time Associated Diagnosis Comments CT ABD+PEL W CON STAT 03/18/2025 8:23 AM CDT Abdominal pain, right lower quadrant from Last 3 Months Results * CT ABD+PEL W CON (03/18/2025 8:23 AM CDT) Anatomical Region Laterality Modality Abdomen Computed Tomogra phy 03/18/2025 9:41 AM CDT Impressions 03/18/2025 9:50 AM CDT IMPRESSION: 1. 5 MM IN DIAMETER STONE PROXIMAL LEFT URETER CAUSING LOW-GRADE OBSTRUCTION. 2. FOCAL INFLAMMATORY CHANGE INVOLVING THE PROXIMAL DESCENDING COLON IN THE LEFT UPPER QUADRANT FELT TO BE CONSISTENT WITH ACUTE DIVERTICULITIS. NO PERFORATION OR ABSCESS. 3. NO EVIDENCE OF MECHANICAL BOWEL OBSTRUCTION. 4. DIFFUSE HEPATIC STEATOSIS. Signed: Prasad Morin MD Referred By: DAVY BOBO Interpreted By: Prasad Morin MD, 03/18/2025 9:41 AM Narrative 03/18/2025 9:50 AM CDT [facility] [address] [place] [address] PATIENT NAME: KARMA GEORGES EXAM: CT abdomen/pelvis with contrast DATE OF EXAM: 03/18/2025 COMPARISON EXAM: None INDICATION: Abdominal pain TECHNIQUE: Axial images obtained from xiphoid process to pubic symphysis with intravenous injection of 80 mL Isovue 370 contrast using low-dose CT technique. Sagittal and coronal reconstruction. FINDINGS: CT ABDOMEN: Visualized portions of the lung bases demonstrate no acute abnormality. No significant hiatal hernia. The liver is normal in size. There is diffuse hepatic steatosis. Small benign-appearing water density nonenhancing liver lesions likely representing benign cysts. No significant intrahepatic lesions are demonstrated. No evidence of cholelithiasis or gallbladder wall thickening. No biliary duct dilatation. The spleen, pancreas, and the adrenal glands are unremarkable. The kidneys demonstrate no evidence of abnormal striated nephrogram nor acute perirenal inflammatory stranding or fluid. There is an approximately 5 mm in diameter stone in the proximal left ureter causing low-grade obstruction. There is no evidence of right ureteral stone nor hydronephrosis. Tiny nonobstructing calcifications are noted in the right kidney. There is no evidence of significant solid renal mass lesion. There is focal inflammatory stranding involving the proximal descending colon in the left upper quadrant felt to BE likely related to acute diverticulitis. There is no evidence of perforation or abscess. No other evidence of acute inflammatory change, abscess or ascites. No evidence of mechanical bowel obstruction or perforation. No significant lymphadenopathy is demonstrated. Abdominal aorta and IVC are unremarkable. CT PELVIS: Sigmoid diverticulosis. No evidence of acute pelvic inflammatory change, abscess or ascites. No pelvic mass or adenopathy. 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 Benign-appearing cystic lesion in the right femoral neck. Procedure Note Prasad Morin MD - 03/18/2025 [facility] [address] [place] [id number] PATIENT NAME: KARMA GEORGES EXAM: CT abdomen/pelvis with contrast DATE OF EXAM: 03/18/2025 COMPARISON EXAM: None INDICATION: Abdominal pain TECHNIQUE: Axial images obtained from xiphoid process to pubic symphysiswith intravenous injection of 80 mL Isovue 370 contrast using low-dose CTtechnique. Sagittal and coronal reconstruction. FINDINGS: CT ABDOMEN: Visualized portions of the lung bases demonstrate no acuteabnormality. No significant hiatal hernia. The liver is normal in size. There is diffuse hepatic steatosis. Smallbenign-appearing water density nonenhancing liver lesions likelyrepresenting benign cysts. No significant intrahepatic lesions aredemonstrated. No evidence of cholelithiasis or gallbladder wallthickening. No biliary duct dilatation. The spleen, pancreas, and the adrenal glands are unremarkable. The kidneys demonstrate no evidence of abnormal striated nephrogram noracute perirenal inflammatory stranding or fluid. There is anapproximately 5 mm in diameter stone in the proximal left ureter causinglow-grade obstruction. There is no evidence of right ureteral stone norhydronephrosis. Tiny nonobstructing calcifications are noted in the rightkidney. There is no evidence of significant solid renal mass lesion. There is focal inflammatory stranding involving the proximal descendingcolon in the left upper quadrant felt to BE likely related to acutediverticulitis. There is no evidence of perforation or abscess. No otherevidence of acute inflammatory change, abscess or ascites. No evidence ofmechanical bowel obstruction or perforation. No significantlymphadenopathy is demonstrated. Abdominal aorta and IVC areunremarkable. CT PELVIS: Sigmoid diverticulosis. No evidence of acute pelvicinflammatory change, abscess or ascites. 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 IMPRESSION: 1. 5 MM IN DIAMETER STONE PROXIMAL LEFT URETER CAUSING LOW-GRADEOBSTRUCTION. 2. FOCAL INFLAMMATORY CHANGE INVOLVING THE PROXIMAL DESCENDING COLON INTHE LEFT UPPER QUADRANT FELT TO BE CONSISTENT WITH ACUTE DIVERTICULITIS.NO PERFORATION OR ABSCESS. 3. NO EVIDENCE OF MECHANICAL BOWEL OBSTRUCTION. 4. DIFFUSE HEPATIC STEATOSIS. Signed: Prasad Morin MD Referred By: DAVY BOBO Interpreted By: Prasad Morin MD, 03/18/2025 9:[address] Final Result from Last 3 Months Insurance [facility] Care Teams Research Physiologist Relationship Specialty Start Date End Date Davy Bobo PA PCP - General PHYSICIAN EMAIL CAMPAIGN SPECIALIST 05/20/20
--- OUTSIDE RECORDS SUMMARY | 2025-04-10 07:31 | XMS_ITS | Referral Summary ---
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 Gender Identity Not on file Sexual Orientation Not on file Last Filed Vital Signs Vital Sign Reading Time Taken Comments Blood Pressure 136/93 09/06/2023 4:25 PM COMMERCIAL FISHING VESSEL OPERATOR Pulse 102 09/06/2023 4:25 PM COMMERCIAL FISHING VESSEL OPERATOR Temperature 36 C (96.8 F) 09/06/2023 4:25 PM COMMERCIAL FISHING VESSEL OPERATOR Respiratory Rate 20 09/06/2023 4:25 PM COMMERCIAL FISHING VESSEL OPERATOR Oxygen Saturation 93% 09/06/2023 4:25 PM COMMERCIAL FISHING VESSEL OPERATOR Inhaled Oxygen Concentration - - Weight 116.4 kg (256 lb 9.9 oz) 023 10:12 AM COMMERCIAL FISHING VESSEL OPERATOR Height 188 cm (6' 2) 09/06/2023 10:12 AM COMMERCIAL FISHING VESSEL OPERATOR Body Mass Index 32.95 09/06/2023 10:12 AM COMMERCIAL FISHING VESSEL OPERATOR Plan of Treatment Not on file Medical Devices Implanted Type Area Cant Gang Sawyer Device Identifier Shelf Expiration Date Model / Serial / Lot [employer] Low Profile Foot Ankle Plate Bone Titanium Lapidus Ar-8941 - Sna - [id number] Implanted:Qty: 1 on 09/06/2023 by Cate Mar DPM at [facility] Plate Left: Foot [employer] AR-8941 / NA / [id number] [employer] Screw Bone 3.5mm 48mm Ti Mini F/T Cmpr Cannltd Variable Step Ar-8730-48h - Sn/A - [id number] Implanted:Qty: 1 on 09/06/2023 by Cate Mar DPM at [facility] Screw Left: Foot [employer] C1713 AR-8730-48H / N/A / [id number] [employer] Screw Bone 4mm 36mm Ti Std Cannulated Hex Ar-8740-36h - Sn/A - [id number] Implanted:Qty: 1 on 09/06/2023 by Cate Mar, LUIGI at [facility] Screw Left: Foot [employer] C1713 AR-8740-36H / N/A / [id number] [employer] Low Profile Screws 2.4mm 26mm Self Drill Self Tap Cannulated Ar-8724-26 - Sn/A - [id number] Implanted:Qty: 1 on 09/06/2023 by Cate Mar, DPM at [facility] Screw Left: Foot [employer] C1713 AR-8724-26 / N/A / [id number] [employer] Screw Kreulock Compression Titanium 3.5x24mm [id number] - Sn/A - [id number] Implanted:Qty: 2 on 09/06/2023 by Cate Mar, DPM at [facility] Screw Left: Foot [employer] C1713 AR-8935CL-2 4 / N/A / [id number] [employer] Screw Kreulock Compression Titanium 3.6lib69kc [id number] - Sn/A - [id number] Implanted:Qty: 1 on 09/06/2023 by Cate Mar, DPM at [facility] Screw Left: Foot [employer] C1713 AR-8935CL-2 6 / N/A / [id number] [employer] Low Profile Screws 3.5mm 32mm Self Tap Solid Hexalobe Midfoot Ar-8935-32 - Sn/A - [id number] Implanted:Qty: 1 on 09/06/2023 by Cate Mar, DPM at [facility] Screw Left: Foot [employer] C1713 AR-8935-32 / N/A / [id number] [employer] Screw Kreulock Compression Titanium 2.4x20mm [id number] - Sn/A - [id number] Implanted:Qty: 2 on 09/06/2023 by Cate Mar, DPM at [facility] Screw Left: Foot [employer] C1713 AR-8724VCL- 20 / N/A / [id number] [employer] Screw Kreulock Compression Titanium 2.4x26mm [id number] - Sn/A - [id number] Implanted:Qty: 1 on 09/06/2023 by Cate Mar, ZAKIM at [facility] Screw Left: Foot [employer] C1713 AR-8724VCL- 26 / N/A / [id number] [employer] Graft Bone Filler Allosync 2.5cc Putty Abs Sn/A - [id number] Implanted:Qty: 1 on 09/06/2023 by Cate Mar, ZAKIM at [facility] Left: Foot [employer] 07/27/2027 ABS-2009-10 / N/A / [id number] [employer] Screw Kreulock Compression Titanium 2.4x18mm [id number] - Sn/A - [id number] Implanted:Qty: 1 on 09/06/2023 by Cate Mar, ZAKIM at [facility] Left: Foot [employer] C1713 AR-8724VCL- 18 / N/A / [id number] [employer] Plate Bone Titanium T Foot Metatarsal 6 Hole Low Profile 2.4mm Screw [id number] - [id number] - [id number] Implanted:Qty: 1 on 09/06/2023 by Cate Mar DPM at [facility] Left: Foot [employer] C1776 AR-8952MT-0 6 / [id number] / N/A Explanted Type Area Cant Gang Sawyer Device Identifier Shelf Expiration Date Model / Serial / Lot [employer] Low Profile Screws 3.5mm 18mm Self Tap Solid Hexalobe Midfoot Ar-8935-18 - Sn/A - [id number] Explanted:Qty: 1 on 09/06/2023 by Cate Mar, LUIGI at [facility] Screw Left: Foot [employer] C1713 AR-8935-18 / N/A / [id number] [employer] Screw Kreulock Compression Titanium 3.5x24mm [id number] - Sn/A - [id number] Explanted:Qty: 1 on 09/06/2023 by Cate Mar, ZAKIM at [facility] Screw Left: Foot [employer] C1713 AR-8935CL-2 4 / N/A / [id number] Insurance [place] [employer] Care Teams Claims Specialist Relationship Specialty Start Date End Date Unknown, Notinfile PCP - General 09/05/23 Cate Mar, LUIGI [facility] [place] [address] Consulting Physician Foot and Ankle Surg 09/06/23
--- OUTSIDE RECORDS SUMMARY | 2025-04-10 07:31 | XMS_ITS | Patient Health Record ---
Author Organization [facility] Activehours [facility] Address [address] [place] [address] Care Team Providers Care Medical Technologist Chief Name Role Phone Jenifer Alfred Primary Care Provider Jacy Brody Unavailable [phone] Dianna Grey Unavailable [phone] Allergies No Known Allergies Reason For Referral No Information Medications Medication SIG (Take, Route, Frequency, Duration) Notes Start Date End Date Status Famotidine 20 MG 1 tablet at bedtime as needed Orally Once a day Active Sertraline HCl 100 MG 1 and 1/2 tablet Orally Once a day; Duration: 90 days 150 mg total Active Omeprazole 40 MG TAKE ONE CAPSULE BY MOUTH DAILY WITH A MEAL Oral; Duration: 30 Days Active amLODIPine Besylate 10 MG TAKE 1 TABLET BY MOUTH EVERY DAY Oral; Duration: 30 Days Active ARIPiprazole 2 MG 1 tablet Orally Once a day; Duration: 30 days decreasing dose 12/30/2024 Active Social History Tobacco Use: Social History Observation Description Date Details (start date - stop date) Never Smoker NA - NA Sex Assigned At : Social History Observation Description Sex Assigned At Male Household Question Answer Notes Marital status: Number of adults in household: 2 Number of children in household: 3 Tobacco Control (Standard) Question Answer Notes Tobacco use: Nonsmoker AUDIT-C (Standard) Question Answer Notes Points 5 Interpretation Negative Did you have a drink contain ing alcohol in the past year? Yes How often did you have six o r more drinks on one occasion in the past year? Less than monthly (1 point) How many drinks did you have on a typical day when you were drinking in the past year? 3 or 4 drinks (1 point) How often did you have a dri nk containing alcohol in the past year? 2 to 3 times a week (3 points) Section Notes: Social History Substance Use Do you or have you ever smoked tobacco?: Never smoker How much tobacco do you smoke?: None Do you or have you ever used any other forms of tobacco or nicotine?: No Do you or have you ever used e-cigarettes or vape?: Never used electronic cigarettes What was the date of your most recent tobacco screening?: 02/04/2024 Has tobacco cessation counseling been provided?: No What is your level of alcohol consumption?: Moderate How many years have you consumed alcohol?: 28 Do you use any illicit or recreational drugs?: No Have you used IV drugs?: No What is your level of caffeine consumption?: Moderate Education and Occupation What is the highest grade or level of school you have completed or the highest degree you have received?: Associate degree: academic program Are you currently employed?: Yes Who is your employer?: [employer] Marriage and Sexuality What is your relationship status?: Are you sexually active?: Yes Do you use protection during sex?: No How many children do you have?: 3 Home and Environment Are there any guns present in your home?: Yes Advance Directive Do you have an advance directive?: No Do you have a medical power of attorney general?: No First name used: MARIA GUADALUPE Social History Substance Use Do you or have you ever smoked tobacco?: Never smoker How much tobacco do you smoke?: None Do you or have you ever used any other forms of tobacco or nicotine?: No Do you or have you ever used e-cigarettes or vape?: Never used electronic cigarettes What was the date of your most recent tobacco screening?: 02/04/2024 Has tobacco cessation counseling been provided?: No What is your level of alcohol consumption?: Moderate How many years have you consumed alcohol?: 28 Do you use any illicit or recreational drugs?: No Have you used IV drugs?: No What is your level of caffeine consumption?: Moderate Education and Occupation What is the highest grade or level of school you have completed or the highest degree you have received?: Associate degree: academic program Are you currently employed?: Yes Who is your employer?: [employer] Marriage and Sexuality What is your relationship status?: Are you sexually active?: Yes Do you use protection during sex?: No How many children do you have?: 3 Home and Environment Are there any guns present in your home?: Yes Advance Directive Do you have an advance directive?: No Do you have a medical power of attorney general?: No First name used: MARIA GUADALUPE Problems Problem Type SNOMED Code ICD Code Onset Dates Problem Status W/U Status Risk Notes Problem Mild recurrent major depression (11937389) Major depressive disorder, recurrent, mild (F33.0) 4 Active confirmed Problem Recurrent major depression in full remission (78181631) Major depressive disorder, recurrent, in full remission (F33.42) Active confirmed Problem Generalized anxiety disorder (32333610) Generalized anxiety disorder (F41.1) 4 Active confirmed Problem Obstructive sleep apnea syndrome (disorder) (81750427) Obstructive sleep apnea (adult) (pediatric) (G47.33) 4 Active confirmed Problem Panic disorder (682933470) Panic attacks (F41.0) Active confirmed Problem Essential hypertension (70478484) Benign essential HTN (I10) Active confirmed Vital Signs Heart Rate 128 /min 12/30/2024 Height-cm 190.50 cm 12/30/2024 Blood pressure diastolic 108 mm Hg 12/30/2024 Weight-kg 124.74 kg 12/30/2024 Height 75.00 in 12/30/2024 Blood pressure systolic 157 mm Hg 12/30/2024 Weight 275 lbs 12/30/2024 BMI 34.37 kg/m2 12/30/2024 Encounters Encounter Location Date Provider Diagnosis [employer] [employer] [facility] [address] [address] 08/25/2024 Jacy Villatoro Major depressive disorder, recurrent, mild F33.0 ; Generalized anxiety disorder F41.1 ; Obstructive sleep apnea (adult) (pediatric) G47.33 and Benign essential hypertension I10 [facility] [address] [address] 10/07/2024 Jacy Villatoro Major depressive disorder, recurrent, mild F33.0 ; Generalized anxiety disorder F41.1 ; Obstructive sleep apnea (adult) (pediatric) G47.33 and Benign essential hypertension I10 [facility] [address] [facility] [address] [place] [address] 12/30/2024 Jacy Croninnettie Generalized anxiety disorder F41.1 ; Panic attacks F41.0 ; Major depressive disorder, recurrent, in full remission F33.42 ; Obstructive sleep apnea (adult) (pediatric) G47.33 ; Benign essential HTN I10 and Encounter for screening for depression Z13.31 [place] [address] [facility] [address] [facility] [address] [place] [address] 05/28/2024 Dianna Matilda [place] [id number] [facility] [address] [place] [address] 09/22/2024 Jacy Croninnettie Major depressive disorder, recurrent, mild F33.[address] [address] 08/28/[address] [address] 08/28/2024 Major depressive disorder, recurrent, mild F33.0 Assessments Encounter Date Diagnosis (ICD Code) Assessment Notes Treatment Notes Treatment Clinical Notes Section Notes 12/30/2024 Generalized anxiety disorder (ICD-10 - F41.1) 12/30/2024 Panic attacks (ICD-10 - F41.0) 08/25/2024 Major depressive disorder, recurrent, mild (ICD-10 - F33.0) Assessment and Plan: 1. Depression: - Patient reports depressed mood, lack of motivation, and feeling tired. No suicidal ideation or intent. - Reports feeling irritable and agitated some days - admits to sometimes aking double the sertraline, and forgetting to take his abilify Plan: - Continue sertraline 150 mg daily - increase abilify to 5 mg daily, take at night - encouraged to take consistently and as prescribed 2. Anxiety: - No significant anxiety issues reported at this time Plan: - medications as above - Continue to monitor anxiety levels during follow-up appointments 3. VENICE - No issues falling asleep - Using CPAP machine for sleep apnea management - reports feeling tired despite compliance Plan: - Encourage continued use of CPAP machine - Follow up with primary care physician for sleep apnea management and fatigue, may possibly need adjustments. Has gained some weight since last sleep study 4. Hypertension: - High blood pressure reported, currently on amlodipine - Blood pressure elevated during visit Plan: - Continue amlodipine as prescribed - Follow up with primary care physician for hypertension management - Recommend lifestyle modifications (weight loss, dietary changes) for blood pressure control follow up 6-8 weeks, sooner if concerns arise 08/25/2024 Generalized anxiety disorder (ICD-10 - F41.1) Assessment and Plan: 1. Depression: - Patient reports depressed mood, lack of motivation, and feeling tired. No suicidal ideation or intent. - Reports feeling irritable and agitated some days - admits to sometimes aking double the sertraline, and forgetting to take his abilify Plan: - Continue sertraline 150 mg daily - increase abilify to 5 mg daily, take at night - encouraged to take consistently and as prescribed 2. Anxiety: - No significant anxiety issues reported at this time Plan: - medications as above - Continue to monitor anxiety levels during follow-up appointments 3. VENICE - No issues falling asleep - Using CPAP machine for sleep apnea management - reports feeling tired despite compliance Plan: - Encourage continued use of CPAP machine - Follow up with primary care physician for sleep apnea management and fatigue, may possibly need adjustments. Has gained some weight since last sleep study 4. Hypertension: - High blood pressure reported, currently on amlodipine - Blood pressure elevated during visit Plan: - Continue amlodipine as prescribed - Follow up with primary care physician for hypertension management - Recommend lifestyle modifications (weight loss, dietary changes) for blood pressure control follow up 6-8 weeks, sooner if concerns arise 08/28/2024 Major depressive disorder, recurrent, mild (ICD-10 - F33.0) 09/22/2024 Major depressive disorder, recurrent, mild (ICD-10 - F33.0) 10/07/2024 Major depressive disorder, recurrent, mild (ICD-10 - F33.0) Depression: - improved, stable Plan: - Continue sertraline 150 mg daily - Continue abilify to 5 mg daily, take at night Anxiety: - No significant anxiety issues reported at this time Plan: - Continue current medications as discussed VENICE - Using CPAP machine for sleep apnea management Plan: - Encourage continued use of CPAP machine 4. Hypertension: - High blood pressure reported, currently on amlodipine - Blood pressure elevated during visit Plan: - Follow up with primary care physician for hypertension management - Recommend lifestyle modifications (weight loss, dietary changes) for blood pressure control follow up 3 months, sooner if concerns arise 10/07/2024 Generalized anxiety disorder (ICD-10 - F41.1) Depression: - improved, stable Plan: - Continue sertraline 150 mg daily - Continue abilify to 5 mg daily, take at night Anxiety: - No significant anxiety issues reported at this time Plan: - Continue current medications as discussed VENICE - Using CPAP machine for sleep apnea management Plan: - Encourage continued use of CPAP machine 4. Hypertension: - High blood pressure reported, currently on amlodipine - Blood pressure elevated during visit Plan: - Follow up with primary care physician for hypertension management - Recommend lifestyle modifications (weight loss, dietary changes) for blood pressure control follow up 3 months, sooner if concerns arise 08/25/2024 Obstructive sleep apnea (adult) (pediatric) (ICD-10 - G47.33) Assessment and Plan: 1. Depression: - Patient reports depressed mood, lack of motivation, and feeling tired. No suicidal ideation or intent. - Reports feeling irritable and agitated some days - admits to sometimes aking double the sertraline, and forgetting to take his abilify Plan: - Continue sertraline 150 mg daily - increase abilify to 5 mg daily, take at night - encouraged to take consistently and as prescribed 2. Anxiety: - No significant anxiety issues reported at this time Plan: - medications as above - Continue to monitor anxiety levels during follow-up appointments 3. VENICE - No issues falling asleep - Using CPAP machine for sleep apnea management - reports feeling tired despite compliance Plan: - Encourage continued use of CPAP machine - Follow up with primary care physician for sleep apnea management and fatigue, may possibly need adjustments. Has gained some weight since last sleep study 4. Hypertension: - High blood pressure reported, currently on amlodipine - Blood pressure elevated during visit Plan: - Continue amlodipine as prescribed - Follow up with primary care physician for hypertension management - Recommend lifestyle modifications (weight loss, dietary changes) for blood pressure control follow up 6-8 weeks, sooner if concerns arise 12/30/2024 Major depressive disorder, recurrent, in full remission (ICD-10 - F33.42) 12/30/2024 Obstructive sleep apnea (adult) (pediatric) (ICD-10 - G47.33) 08/25/2024 Benign essential hypertension (ICD-10 - I10) Assessment and Plan: 1. Depression: - Patient reports depressed mood, lack of motivation, and feeling tired. No suicidal ideation or intent. - Reports feeling irritable and agitated some days - admits to sometimes aking double the sertraline, and forgetting to take his abilify Plan: - Continue sertraline 150 mg daily - increase abilify to 5 mg daily, take at night - encouraged to take consistently and as prescribed 2. Anxiety: - No significant anxiety issues reported at this time Plan: - medications as above - Continue to monitor anxiety levels during follow-up appointments 3. VENICE - No issues falling asleep - Using CPAP machine for sleep apnea management - reports feeling tired despite compliance Plan: - Encourage continued use of CPAP machine - Follow up with primary care physician for sleep apnea management and fatigue, may possibly need adjustments. Has gained some weight since last sleep study 4. Hypertension: - High blood pressure reported, currently on amlodipine - Blood pressure elevated during visit Plan: - Continue amlodipine as prescribed - Follow up with primary care physician for hypertension management - Recommend lifestyle modifications (weight loss, dietary changes) for blood pressure control follow up 6-8 weeks, sooner if concerns arise 10/07/2024 Obstructive sleep apnea (adult) (pediatric) (ICD-10 - G47.33) Depression: - improved, stable Plan: - Continue sertraline 150 mg daily - Continue abilify to 5 mg daily, take at night Anxiety: - No significant anxiety issues reported at this time Plan: - Continue current medications as discussed VENICE - Using CPAP machine for sleep apnea management Plan: - Encourage continued use of CPAP machine 4. Hypertension: - High blood pressure reported, currently on amlodipine - Blood pressure elevated during visit Plan: - Follow up with primary care physician for hypertension management - Recommend lifestyle modifications (weight loss, dietary changes) for blood pressure control follow up 3 months, sooner if concerns arise 10/07/2024 Benign essential hypertension (ICD-10 - I10) Depression: - improved, stable Plan: - Continue sertraline 150 mg daily - Continue abilify to 5 mg daily, take at night Anxiety: - No significant anxiety issues reported at this time Plan: - Continue current medications as discussed VENICE - Using CPAP machine for sleep apnea management Plan: - Encourage continued use of CPAP machine 4. Hypertension: - High blood pressure reported, currently on amlodipine - Blood pressure elevated during visit Plan: - Follow up with primary care physician for hypertension management - Recommend lifestyle modifications (weight loss, dietary changes) for blood pressure control follow up 3 months, sooner if concerns arise 12/30/2024 Benign essential HTN (ICD-10 - I10) 12/30/2024 Encounter for screening for depression (ICD-10 - Z13.31) 12/30/2024 Alexsander Georges presents with improved mood and energy attributed to a recently initiated low-carb diet, while managing ongoing psychiatric medications and hypertension. Mood Disorder Assessment: Patient reports improved mood and energy, which he attributes to a recently initiated low-carb diet in conjunction with his current medication regimen. He denies any suicidal ideation or panic attacks. Current medications include sertraline 150 mg and Abilify 5 mg. The patient expresses interest in potentially reducing medication dosage. Plan: - Decrease Abilify from 5 mg to 2 mg - Rationale: To support weight loss efforts while maintaining mood stability - Informed patient of minimal risk of weight gain associated with Abilify - Continue sertraline 150 mg - Monitor for any worsening of symptoms following medication adjustment - Follow-up in 6 weeks or sooner if concerns arise Hypertension Assessment: Patient reports elevated blood pressure and admits to not taking his antihypertensive medication today. He expresses a desire to improve blood pressure through weight loss efforts. Plan: - Emphasize importance of medication adherence for blood pressure control - Encourage patient to take antihypertensive medication as prescribed (at night, as per patient's statement) - Support patient's efforts for lifestyle modifications (low-carb diet, exercise) to aid in weight loss and potential blood pressure improvement Obesity Assessment: Patient reports initiating a ketogenic diet one week ago for weight loss. Initial weight was 280 lbs, with a recent measurement of 274 lbs. Patient is also incorporating exercise into his routine. Plan: - Encourage continuation of diet and exercise regimen - Monitor weight loss progress at follow-up appointments Obstructive Sleep Apnea Assessment: Patient reports consistent use of CPAP therapy nightly and acknowledges noticeable difference when adherent to treatment. Plan: - Reinforce importance of continued CPAP use Plan Of Treatment Next Appt Details Provider Name:Jacy pineda, 04/14/2025 11:00:00 AM, [address], [facility] [address], [place], [address], Insurance Providers Payer Name Payer Address Payer Phone Subscriber Number Group Number Insured Name Patient Relationship to Insured Coverage Start Date Coverage End Date bs-Mn Ppo [address] [place] [address] [id number] KARMA GEORGES Self - patient is the insured Medical (General) History Medical History History ICD Code Psychiatric history: General ized anxiety disorder, Major depressive disorder, panic attacks Obesity Obstructive sleep apnea syndrome Benign essential hypertension I10 GERD (gastroesophageal reflux disease) K 21.9 Hyperlipidemia, mixed E78.2
--- OUTSIDE RECORDS SUMMARY | 2025-04-10 07:31 | XMS_ITS | Data Portability ---
Author Organization [facility] [place] Address [address] [place] [address] Care Team Providers Care Door Trimmer Name Role Phone JENIFER BOBO Primary Care Provider Unavailab le Assessment Encounter Date Assessment Date Assessment LastModified by Organization Details LastModified Time 08/12/2024 08/12/2024 Labs show thyroid levels are normal, triglycerides are slightly elevated at 215 and LDL is slightly elevated at 108. Both of these can be improved with lowering sugars and fried foods in the diet and exercise. Fasting sugar is elevated at 109 and diabetes screening test is 6.1% indicating prediabetes is present further requiring lower sugars in the diet. He also slightly elevated liver enzyme . CBC blood counts are overall normal and the annual PSA prostate test is normal. Not available 08/12/2024 14:48:23 02/10/2025 02/10/2025 Labs show thyroid levels are normal, triglycerides are slightly elevated at 215 and LDL is slightly elevated at 108. Both of these can be improved with lowering sugars and fried foods in the diet and exercise. Fasting sugar is elevated at 109 and diabetes screening test is 6.1% indicating prediabetes is present further requiring lower sugars in the diet. He also slightly elevated liver enzyme . CBC blood counts are overall normal and the annual PSA prostate test is normal. Not available 02/10/2025 16:05:26 Plan of Treatment Reminders Order Date Submit Date Provider Last Modified By Organization Details Last Modified Time Details Appointments ANY 15 2024 03:15P M PADMINI Castellano Not available Not available Not available Lab lipid panel, serum 2024 025 [email or web address] [facility], [address], [place], [address], 02/10/2025 16:22:18 HbA1c (hemogl obin A1c), blood 2024 025 [email or web address] [facility], [address], [place], [address], 02/10/2025 16:22:18 CBC w/ auto diff 2024 025 [email or web address] [facility], [address], [place], [address], 02/10/2025 16:22:18 CMP, serum or plasma 2024 025 [email or web address] [facility], [address], [place], [address], 02/10/2025 16:22:18 rapid strep group A, throat 2024 025 [email or web address] In-Office Order, Internal Use Only DO Not Attach Compendium DO Not Attach Compendium, Do Not Delete/merge, 11/11/2024 13:21:29 influen za virus A + B + SARS-Co V-2 (COVID1 9) Ag panel, rapid IA, upper respira tory specime n 2024 025 [email or web address] In-Office Order, Internal Use Only DO Not Attach Compendium DO Not Attach Compendium, Do Not Delete/merge, 11/11/2024 13:21:47 influen za virus A + B + SARS-Co V-2 (COVID1 9) Ag panel, rapid IA, upper respira tory specime n 2024 025 [email or web address] In-Office Order, Internal Use Only DO Not Attach Compendium DO Not Attach Compendium, Do Not Delete/merge, 10/21/2024 15:16:14 rapid strep group A, throat 2024 025 [email or web address] In-Office Order, Internal Use Only DO Not Attach Compendium DO Not Attach Compendium, Do Not Delete/merge, [id number] 10/21/2024 15:16:14 lipid panel, serum 2023 025 [facility], [address], [place], [address], 02/11/2025 14:30:13 HbA1c (hemogl obin A1c), blood 2023 025 [email or web address] [facility], [address], [place], [address], 02/11/2025 14:30:25 CBC w/ auto diff 2023 025 [email or web address] [facility], [address], [place], [address], 02/11/2025 14:30:02 CMP, serum or plasma 2023 025 [email or web address] [facility], [address], [place], [address], 02/11/2025 14:30:[address] referra l 2023 025 [facility] Otol[facility]ology (Ent), [address] , [address], [place], [address], 01/01/2025 14:48:18 Procedures None recorde d. Surgeries None recorde d. Imaging CT, abdomen + pelvis, w/ contras t 2024 025 [email or web address] [facility] (Imaging & Mammogram), [address] [place], [address], 03/23/2025 10:06:34 Medication Orders Wegovy 0.25 mg/0.5 mL subcuta neous pen injecto r 2024 025 [email or web address] [id number], [address], [place], [place], [id number], 03/17/2025 15:03:43 cefdini r 300 mg capsule 2024 025 [id number], [address], [place], [place], [id number], 02/10/2025 15:58:19 azithro mycin 250 mg tablet 2024 025 [facility] #[id number], [address], [place], [place], [phone], 11/11/2024 11:37:12 Patient TargetsNo targets recorded. 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 Posterior auricular lymphadenopathy Referring Physician: Jenifer Bobo, Internal Medicine, Encounter Date: 08/12/2024 Results Created Date Observation Date Name Description Value Unit Range Abnormal Flag Note LastModifiedBy Organization Detail LastModifiedTime 10/21/1910/21/2024 rapid strep group A, throa t Strep positi ve Not Available In-Office Order Internal Use Only DO Not Attach Compendium DO Not Attach Compendium, Do Not Delete/merge, [id number] 10/21/2024 14:44:08 10/21/19 25 10/21/2024 influ amy virus A + B + SARS- CoV-2 (COVI D19) Ag panel , rapid IA, upper respi rator y speci men Flu A positi ve Not Available In-Office Order Internal Use Only DO Not Attach Compendium DO Not Attach Compendium, Do Not Delete/merge, 10/21/2024 14:44:07 10/21/1910/21/2024 influ amy virus A + B + SARS- CoV-2 (COVI D19) Ag panel , rapid IA, upper respi rator y speci men Flu B negati ve Not Available In-Office Order Internal Use Only DO Not Attach Compendium DO Not Attach Compendium, Do Not Delete/merge, 10/21/2024 14:44:07 10/21/1910/21/2024 influ amy virus A + B + SARS- CoV-2 (COVI D19) Ag panel , rapid IA, upper respi rator y speci men Rapid SARS CoV 2 Ag, QL IA, respiratory specimen negati ve Not Available In-Office Order Internal Use Only DO Not Attach Compendium DO Not Attach Compendium, Do Not Delete/merge, 10/21/2024 14:44:07 11/11/1911/11/2024 influ amy virus A + B + SARS- CoV-2 (COVI D19) Ag panel , rapid IA, upper respi rator y speci men Flu A negati ve Not Available In-Office Order Internal Use Only DO Not Attach Compendium DO Not Attach Compendium, Do Not Delete/merge, 11/11/2024 13:21:40 11/11/1911/11/2024 influ amy virus A + B + SARS- CoV-2 (COVI D19) Ag panel , rapid IA, upper respi rator y speci men Flu B negati ve Not Available In-Office Order Internal Use Only DO Not Attach Compendium DO Not Attach Compendium, Do Not Delete/merge, 11/11/2024 13:21:40 11/11/19 25 11/11/2024 influ amy virus A + B + SARS- CoV-2 (COVI D19) Ag panel , rapid IA, upper respi rator y speci men Rapid SARS CoV 2 Ag, QL IA, respiratory specimen negati ve Not Available In-Office Order Internal Use Only DO Not Attach Compendium DO Not Attach Compendium, Do Not Delete/merge, [id number] 11/11/2024 13:21:40 11/11/19 25 11/11/2024 rapid strep group A, throa t Strep negati ve Not Available In-Office Order Internal Use Only DO Not Attach Compendium DO Not Attach Compendium, Do Not Delete/merge, [id number] 11/11/2024 12:07:11 08/12/20 24 04/01/2024 upper endos copy proce dure (EGD) (PROC ) No observ ation record ed. [email or web address] [facility] [address], [place], [address], 08/12/2024 16:08:29 09/15/20 24 08/31/2022 colon oscop y scree leigh (PROC ) No observ ation record ed. BARCODE Not Available 2023 18:02:43 03/18/20 25 03/18/2025 CT, abdom en + pelvi s, w/ contr ast No observ ation record ed. [facility] [address] [place], [address], 03/18/2025 12:50:41 Result Notes None recorded. Problems Name Problem SNOMED Code Status Onset Date Resolution Date Notes Provider Name and Address Organization Details Recorded Time Long-term drug therapy Active 2023 PADMINI Castellano Attn: Allan fenton,[address] [place], [address], [facility] 4 01:30:10 Intermitten t dysphagia 25448054 Active 2023 PADMINI Castellano Attn: Allan fenton,[address] [place], [address], [facility] 4 01:30:29 Gastroesoph ageal reflux disease without esophagitis 277136275 Active 2023 PADMINI Castellano Attn: Allan fenton,[address] [place], [address], [place] [facility] 4 01:30:30 Benign essential hypertensio n 7894766 Active 2023 PADMINI Castellano Attn: Accountin g,[address] [facility], [place], [address], [place] [facility] 4 01:30:45 Body mass index 30+ - obesity 417688368 Active 2023 Tony Wilburn MA null, [place] - [facility] 4 14:40:03 Obesity 520375132 Active 2023 PADMINI Castellano Attn: Accountin g,[address] [place], [address], [place] [facility] 4 14:49:39 Obstructive sleep apnea syndrome 12961952 Active 2023 PADMINI Castellano Attn: Accountin g,[address] [place], [address], [place] [facility] 4 14:59:32 Liver enzymes level above reference range 994978994 Active 2023 PADMINI Castellano Attn: Accountin g,[address] [place], [address], [place] [facility] 4 14:59:58 Mixed hyperlipide nigel 645141527 Active 2023 PADMINI Castellano Attn: Accountin g,[address] [place], [address], [place] [facility] 4 15:00:03 Prediabetes 060895729 Active 2023 PADMINI Castellano Attn: Accountin g,[address] [place], [address], [place] [facility] 4 15:00:08 Posterior auricular lymphadenop athy 505923132 Active 2023 PADMINI Castellano Attn: Accountin g,[address] [place], [address], [place] [facility] 4 09:59:40 Obese class I 8638776813075 07 Active 2024 PADMINI Castellano Attn: Allan fenton,[address] [facility], [place], [address], [facility] 5 23:19:38 Problem Notes None recorded. Medical Equipment None Reported. Allergies No known drug allergies Medications Name Sig Start Date Stop Date Status Note LastModified by Organization Details LastModified Time citalopra m 40 mg tablet TAKE 1 TABLET BY MOUTH EVERY DAY 02/17 completed Not Available Not Available Not Available azithromy lolita 250 mg tablet TK 2 TS PO ON DAY 1, THEN TK 1 T PO D FOR 4 DAYS. 11/11 completed Not Available Not Available Not Available sertralin e 100 mg tablet TAKE 1 AND 1/2 TABLETS BY MOUTH ONCE A DAY FOR TOTAL DAILY DOSE IS 150MG active Not Available Not Available No t Available metronida zole 500 mg tablet TAKE 1 TABLET BY MOUTH EVERY 8 HOURS active Not Available Not Available No t Available amlodipin e 5 mg tablet TAKE 1 TABLET BY MOUTH EVERY DAY 02/17 completed Not Available Not Available Not Available ciproflox acin 500 mg tablet TAKE 1 TABLET BY MOUTH EVERY 12 HOURS active Not Available Not Available No t Available omeprazol e 40 mg capsule,d elayed release TAKE 1 CAPSULE BY MOUTH DAILY WITH A MEAL active Not Available Not Available No t Available ketorolac 10 mg tablet TAKE 1 TABLET BY MOUTH EVERY 6 HOURS FOR 3 DAYS NEEDED FOR PAIN active Not Available Not Available No t Available amoxicill in 875 mg tablet TAKE 1 TABLET BY MOUTH TWICE DAILY UNTIL GONE 02/10 completed Not Available Not Available Not Available alprazola m 0.25 mg tablet TAKE 1 TABLET BY MOUTH EVERY DAY NEEDED 02/17 completed Not Available Not Available Not Available citalopra m 20 mg tablet 02/17 completed Not Available Not Available Not Available famotidin e 20 mg tablet TAKE 1 TABLET BY MOUTH EVERY NIGHT AT BEDTIME ON AN EMPTY STOMACH active Not Available Not Available No t Available methocarb ruba 750 mg tablet Take by oral route for 15 days. 08/12 completed Not Available Not Available Not Available tamsulosi n 0.4 mg capsule TAKE 1 CAPSULE BY MOUTH DAILY active Not Available Not Available No t Available amlodipin e 10 mg tablet TAKE 1 TABLET BY MOUTH DAILY active Not Available Not Available No t Available sertralin e 25 mg tablet 02/17 completed Not Available Not Available Not Available calcipotr iene 0.005 % scalp solution APPLY TO AFFECTED AREAS TO SCALP TWICE DAILY SATURDAY TO SATURDAY active Not Available Not Available No t Available clobetaso l 0.05 % scalp solution APPLY EXTERNAL LY TO THE AFFECTED AREA OF SCALP ONCE ON SATURDAY AND SATURDAY. DO NOT USE DAILY active Not Available Not Available No t Available cefdinir 300 mg capsule TAKE 1 CAPSULE BY MOUTH EVERY 12 HOURS 02/10 completed Not Available Not Available Not Available fluticaso ne propionat e 50 mcg/actua tion nasal spray,[place] pension SHAKE LIQUID AND USE 2 SPRAYS IN EACH NOSTRIL DAILY active Not Available Not Available No t Available amoxicill in 875 mg-potass ium clavulana te 125 mg tablet TAKE 1 TABLET BY MOUTH EVERY 12 HOURS 02/17 completed Not Available Not Available Not Available aripipraz ole 5 mg tablet TAKE 1 TABLET BY MOUTH DAILY active Not Available Not Available No t Available aripipraz ole 2 mg tablet Take 1 tablet every day by oral route for 30 days. 10/21 completed Not Available Not Available Not Available Wegovy 0.25 mg/0.5 mL subcutane ous pen injector Inject 0.25 mg every week by subcutan eous route. 2024 active pt never started Not Available Not Available Not Available Vitals Date Recorded Respiratory rate Systolic And Diastolic Provider Name and Address Organization Details Last Updated DateTime 10/21/2024 16 /min 160/100 mm[Hg] PADMINI Castellano Attn: Accounting,[address] [place], [address], [place] - [facility] 10/21/2024 14:39:13 Date Recorded Body height Body mass index (BMI) Body weight Oxygen saturation Oxygen saturation in Arterial blood by Pulse oximetry Heart rate Systolic And Diastolic Systolic And Diastolic Provider Name and Address Organization Details Last Updated DateTime 190.5 cm 33.6 kg/m2 886237. 35 g 98 % 98 % 125 /min 148/90 mm[Hg] 160/90 mm[Hg] Tony Wilburn MA [facility] 14:22:51 Date Recorded Systolic And Diastolic Provider Name and Address Organization Details Last Updated DateTime 11/11/2024 136/80 mm[Hg] PADMINI Castellano Attn: Accounting,[address] [place], [address], [facility] 11/11/2024 12:06:54 Date Recorded Body height Body mass index (BMI) Body weight Heart rate Oxygen saturation Oxygen saturation in Arterial blood by Pulse oximetry Systolic And Diastolic Provider Name and Address Organization Details Last Updated DateTime 190.5 cm 33.7 kg/m2 311950. 94 g 112 /min 99 % 99 % 150/100 mm[Hg] Jenelle Garcia MA [facility] 11:39:35 Date Recorded Respiratory rate Systolic And Diastolic Provider Name and Address Organization Details Last Updated DateTime 02/10/2025 16 /min 140/80 mm[Hg] PADMINI Castellano Attn: Accounting, [place], [address], [facility] 02/10/2025 16:27:24 Date Recorded Body height Body mass index (BMI) Body weight Oxygen saturation Oxygen saturation in Arterial blood by Pulse oximetry Heart rate Systolic And Diastolic Provider Name and Address Organization Details Last Updated DateTime 190.5 cm 34.9 kg/m2 521679. 27 g 96 % 96 % 92 /min 150/82 mm[Hg] Tony Wilburn MA [facility] 16:00:03 Date Recorded Systolic And Diastolic Provider Name and Address Organization Details Last Updated DateTime 03/17/2025 130/90 mm[Hg] PADMINI Castellano Attn: Accounting,[address] [place], [address], [facility] 03/17/2025 15:24:57 Date Recorded Body height Body mass index (BMI) Body weight Oxygen saturation Oxygen saturation in Arterial blood by Pulse oximetry Heart rate Respiratory rate Systolic And Diastolic Provider Name and Address Organization Details Last Updated DateTime 07/02/202 5 190.5 cm 34.5 kg/m2 153471. 49 g 97 % 97 % 120 /min 18 /min 160/90 mm[Hg] Tony Wilburn MA [facility] 5 15:04:54 Date Recorded Systolic And Diastolic Provider Name and Address Organization Details Last Updated DateTime 08/12/2024 142/80 mm[Hg] PADMINI Castellano Attn: Accounting,[address] [place], [address], [facility] 08/12/2024 15:04:32 Date Recorded Body height Body mass index (BMI) Body weight Respiratory rate Oxygen saturation Oxygen saturation in Arterial blood by Pulse oximetry Heart rate Systolic And Diastolic Provider Name and Address Organization Details Last Updated DateTime 4 190.5 cm 32.6 kg/m2 980236. 61 g 20 /min 97 % 97 % 80 /min 136/82 mm[Hg] Tony Wilburn MA [facility] 4 14:41:30 Social History Question Answer Notes LastModified by MPSTORizat ion Details LastModified Time Tobacco Smoking Status Never Smoker Tony Wilburn MA null, [facility] 02/18/2024 16:22:08 Do You Have An Advance Directive? No Information not available 02/18/2024 Are You Blind Or Do You Have Difficulty Seeing? No Glasses Information not available 02/18/2024 What Is Your Level Of Caffeine Consumption? Moderate Coffee, Monster Information not available 02/18/2024 In The 14 Days Before Symptom Onset, Have You Had Close Contact With A Laboratory-confir med COVID-19 While That Case Was Ill? No Information not available 02/18/2024 In The 14 Days Before Symptom Onset, Have You Had Close Contact With A Person Who Is Under Investigation For COVID-19 While That Person Was Ill? No Information not available 02/18/2024 Have You Been To An Area Known To Be High Risk For COVID-19? No Information not available 02/18/2024 Are You Deaf Or Do You Have Serious Difficulty Hearing? No Information not available 02/18/2024 What Type Of Diet Are You Following? REGULAR Information not available 02/18/2024 Are There Any Guns Present In Your Home? No Information not available 02/18/2024 What Was The Date Of Your Most Recent Tobacco Screening? 03/17/2025 Information not available 03/17/2025 What Is Your Relationship Status? Information not available 02/18/2024 Do You Use Your Seat Belt Or Car Seat Routinely? Yes Information not available 02/18/2024 Do You Have Smoke And Carbon Monoxide Detectors In Your Home? Yes Information not available 02/18/2024 Do You Use Sunscreen Routinely? Yes Information not available 02/18/2024 Has Tobacco Cessation Counseling Been Provided? Yes Information not available 02/18/2024 On What Date Was Tobacco Cessation Counseling Provided? 03/17/2025 Information not available 03/17/2025 Sex: Male Functional Status Question Answer Note LastModified by Organizat ion Details LastModified Time Do you use any illicit or recreational drugs? No Information not available 02/18/2024 Do you or have you ever used any other forms of tobacco or nicotine? No Information not available 02/18/2024 What is your level of alcohol consumption? Occasional Information not available 02/18/2024 Are you able to care for yourself independently? Yes Information not available 02/18/2024 What is your exercise level? None Information not available 02/18/2024 Mental Status None recorded. Family History Relationship Description Onset Age of this Age Resolved Age Notes LastModified by Organization Details LastModified Time Father Harmful pattern of use of alcohol [email or web address] Not available 2023 16:20:50 Father Depressive disorder [email or web address] Not available 2023 16:20:59 Father Heart disease tcarterma Not available 2023 16:21:31 Father Diabetes mellitus tcarterma Not available 2023 16:21:46 Mother Depressive disorder tcarterma Not available 2023 16:20:59 Mother Hypertensive disorder tcarterma Not available 2023 16:21:36 Medical History Condition Response Coronary Artery Disease N Other N Atrial Fibrillation N High Blood Pressure N Thyroid Problems N Kidney or Bladder Problems N Depression Y COPD N Blood Clots N GI Problems N Skin Problems N Anemia N Heart Attack (NE) N Diabetes N Anxiety Disorder Y Muscle, Joint, or Bone Problems N Seizures/Epilepsy N Acid Reflux (GERD) N Cancer N Stroke N Allergies N Asthma N High Cholesterol N Hepatitis N Liver Disease N Headaches N Osteoporosis N Heart Failure N Immunizations Vaccine Type Date Status Note Provider Nam e and Address Organization Details Recorded Time COVID-19, mRNA, LNP-S, PF, 30 mcg/0.3 mL dose 1 completed Tony Wilburn [place] null, [place] [facility] 08/12/2024 14:35:34 COVID-19, mRNA, LNP-S, PF, 30 mcg/0.3 mL dose 1 completed SHIELA Casas, [place] [facility] 08/12/2024 14:35:34 COVID-19, mRNA, LNP-S, PF, 30 mcg/0.3 mL dose 1 completed Tony Wilburn [place], [place] [facility] 08/12/2024 14:35:34 COVID-19, mRNA, LNP-S, bivalent, PF, 30 mcg/0.3 mL dose 3 completed SHIEL[place] [facility] 08/12/2024 14:35:34 Tdap 3 completed SHIELA [place] [facility] 08/12/2024 14:35:34 influenza, split (incl. purified surface antigen) 3 completed SHIELA Caass[place] [facility] 08/12/2024 14:35:34 zoster recombinant 4 completed SHIELA [place] [facility] 10/21/2024 14:18:04 COVID-19, mRNA, LNP-S, PF, zina-sucrose, 30 mcg/0.3 mL 4 completed SHIELA Cas[place] [facility] 10/21/2024 14:18:04 Influenza, MDCK, trivalent, PF 4 completed Tony Wilburn MA [facility], [place] - [facility] 10/21/2024 14:18:04 Pneumococcal conjugate PCV20, polysaccharide [id number] conjugate, adjuvant, PF 5 completed Not Available [facility] 03/17/2025 15:02:53 zoster recombinant 5 completed Not Available [facility] 03/17/2025 15:02:53 Past Encounters Encounter ID Performer Location Encounter Start Date Encounter Closed Date Diagnosis/Indication Diagnosis SNOMED-CT Code Diagnosis ICD10 Code Diagnosis Note [id number] Luis Ray MD [facility] [address] [place] [address] 02/18/2024 15:58:12 03/16/2024 15:03:55 Benign essential hypertension 9222301 I10 stable on amlodipine 10mg daily. 140/90 , borderline control. pt really needs to make dietary changes to faciliate weight loss and help manage BP better. Intermitte nt dysphagia 72098786 R13.19 referral for EGD evaluation . Cholesterol screening 27 8429047 Z13.220 fasting lipids due. Diabetes m ellitus screening 598559080 Z13.1 a1c screening due. Long-term drug therapy 814702068 Z79.899 routine CBC, CMP and TFTs due. Screening for malignant neoplasm of prostate 631713218 Z12.5 annual psa due Gastroesop hageal reflux disease without esophagitis 652496684 K21.9 Rx for omeprazole 40mg daily. [id number] Luis Ray MD [facility] [address] [place] [address] 08/12/2024 14:27:37 08/12/2024 15:23:03 Body mass index 30+ - obesity 113135282 Z68.32 BMI is 32.6 Obesity 980688822 E66.9 discussed healthy diet, exercise, controllin g carbohydra jared and added sugars in the diet Benign ess ential hypertension 4647618 I10 Borderline elevation today. 142/80. Encouraged dietary modificati ons and increasing sodium and alcohol in the diet which will help notably. For now we will continue amlodipine 10 mg daily Gastroesop hageal reflux disease without esophagitis 801707590 K21.9 Continue omeprazole 40 mg daily for reflux Long-term drug therapy 078124104 Z79.899 CBC and CMP ordered for November Adult heal th examination 656062788 Z00.01 wellness exam completed. Mixed hyperlipidemia 267 856109 E78.2 Lipids are still mildly elevated in the LDL and triglyceri kaitlyn. Patient is not interested in starting medication therapy but instead wants to improve his diet. Fasting lipids will be ordered again in November Prediabetes 383639439 R7 3.03 6.1% A1c on recent labs. Need to focus on decreasing simple carbohydra jared, sugars and alcohol in the diet. Repeat labs in November. Liver enzy mes level above reference range 371204446 R74.01 Decrease alcohol intake! Obstructiv e sleep apnea syndrome 34764453 G47.33 wearing cpap nightly 6-7 hours nightly. still tired every day. falls asleep easier with cpap. Posterior auricular lymphadenopathy 843288914 R59.0 Right-side d posterior auricular lymphadeno zari is noted we will refer him to [facility] N[facility] Throat for formal evaluation on this area [id number] Luis Ray MD [facility] [facility] [address] [place] [address] 10/21/2024 14:09:28 10/21/2024 15:47:01 Body mass index 30+ - obesity 783049528 Z68.32 BMI is 32.6 Obesity 576924764 E66.9 discussed healthy diet, exercise, controllin g carbohydra jared and added sugars in the diet Benign ess ential hypertension 5646920 I10 Blood is elevated today 160/100. This is an outlier elevation and maybe from acute illness Long-term drug therapy 534075301 Z79.899 Obstructiv e sleep apnea syndrome 09894762 G47.33 he adjusted his pressure setting to 11cm H20 and shaved liao and ordered new mask for bearded patients. Fatigue 38227091 R53.83 Supportive care Fever 611859007 R50.9 Negative for influenza and COVID positive for strep Posterior rhinorrhea 758 31232 R09.82 Start an antihistam ine daily Streptococ reg sore throat 32334116 J02.0 Start Z-Fab therapy for strep throat signs and symptoms [id number] Luis Ray MD [facility] [employer] [address] [place] [address] 11/11/2024 11:13:28 11/11/2024 12:37:52 Sore throat 712471018 J02.9 Strep is negative on swab today. Congestion of nasal sinus 43901590 R09.81 Negative COVID and flu testing. Patient may take over-the-c ounter antihistam ine and decongesta nt Acute sinusitis 21989053 J01.90 Start cefdinir 300 mg twice daily for 7 days for acute sinusitis in light of negative strep and negative COVID and flu testing [id number] Luis Ray MD [facility] [employer] [address] [place] [address] 02/10/2025 15:46:42 02/11/2025 12:19:35 Body mass index 30+ - obesity 457890143 Z68.32 BMI is 34.9. start Wegovy injectable therapy. no personal or family hx of Medullary thyroid cancer or MEN conditions . Obese class I [id number] 82818 E66.811 discussed healthy diet, exercise, controllin g carbohydra jared and added sugars in the diet Benign ess ential hypertension 5502822 I10 Blood pressure 140/80 on exam today. Stable on amlodipine 10 mg daily. Continue requests for diet and exercise modificati ons. Patient will be starting Wegovy therapy hopefully which will also help to decrease blood pressure indirectly after weight loss. Gastroesop hageal reflux disease without esophagitis 543133013 K21.9 Continue omeprazole 40 mg daily for reflux Prediabetes 413142614 R7 3.03 6.1% A1c on recent labs. Need to focus on decreasing simple carbohydra jared, sugars and alcohol in the diet. Repeat labs in November. Obstructiv e sleep apnea syndrome 24287927 G47.33 wearing cpap nightly 6-7 hours nightly. still tired every day. falls asleep easier with cpap. Mixed hyperlipidemia 267 296160 E78.2 Lipids are still mildly elevated in the LDL and triglyceri kaitlyn. Patient is not interested in starting medication therapy but instead wants to improve his diet. Fasting lipids will be ordered again in November Long-term drug therapy 870899405 Z79.899 CBC and CMP ordered [id number] Luis Ray MD [facility] [employer] [address] [place] [address] 03/17/2025 14:59:40 03/23/2025 10:06:33 Obese class I [id number] 31966 E66.811 discussed healthy diet, exercise, controllin g carbohydra jared and added sugars in the diet 34.5 Right lowe r quadrant pain 701670169 R10.[address] abdomen and pelvis with contrast rule out appendicit is or other etiology Generalize d abdominal pain 455362668 R10.[address] as ordered above Low grade pyrexia 847818 008 R50.9 Supportive care Tylenol as needed for any fever Health Concerns Section Related Observation LastModified by Organization Detai ls LastModified Time None Recorded Concern Status LastModified by Organization Details LastModified Time None Recorded Advance Directives Directive N: Payers Insurance Date Sequence Insurance Name Policy Number Policy Pizano Covered Member ID Pizano Member ID Guarantor Name 04/05/2025 1 [facility] ([facility] [id number] Be Georges [id number] Be Georges Notes Date Note Type Note Provider Name and Address Organization Details Recorded Time 4 text/html HypertensionReported by Patientpt is taking amlodipine 10mg daily Anxiety/DepressionReported by Patientstable on abilify 2mg daily and sertraline 150mg daily. Reflux/GERDReported by PatientPatient is up-to-date on completing an EGD this fall.EGD completed April 01, 2024 shows esophageal ring and a hiatal hernia continue PPI therapy. Pathology showed mild chronic nonspecific gastroesophagitis without intestinal metaplasia no evidence of H pylori Patient is here for his annual appointment PADMINI Castellano Attn: Accounting,[address] [facility], [place], [address], [facility] 08/17/2024 10:00:02 5 text/html HypertensionReported by PatientPatient is on amlodipine 10 mg daily. He does have an elevation today Obstructive Sleep Apnea F/UReported by PatientHPIFor quality, patient reportswitnessed apneaandsnoring with apnea. For location, patient reportsenlarged tonsils __andthroat pain. For context, patient reportshypertensionbut reportsrecent upper respiratory infectionandwitness to sleep spouse. For associated symptoms, patient reportsnasal congestion. For onset/timing, patient reportschronic. For alleviating factors, patient reportsrelief with cpap. For aggravating factors, patient reportsworse during an upper respiratory infection (a cold)andworse when allergies are active. For prior tests, patient reportspsg. For prior treatment, patient reportscpap. For prior opinion, patient reportspcp. Upper Respiratory SymptomsReported by PatientUpper Respiratory SymptomsFor quality, patient reportscolored phlegm,congested, andhurts to swallow. For associated symptoms, patient reportsfatigue,fever, andsore throat. For location, patient reportsheadandthroat. For severity, patient reportsmoderate. For onset/timing, patient reportssudden. For context, patient reportsno sick contacts. For modifying factors, patient reportsotc medication. For duration, (onset within the last week). PADMINI Castellano Attn: Accounting,[address] [place], [address], [facility] 11/12/2024 22:59:52 5 text/html Upper Respiratory SymptomsReported by PatientUpper Respiratory SymptomsFor quality, patient reportscolored phlegmandcongested. For associated symptoms, patient reportsfatigueandsore throat. For location, patient reportsheadandthroat. For severity, patient reportsmoderate. For onset/timing, patient reportssudden. For context, patient reportsno sick contacts. For modifying factors, patient reportsotc medication. For duration, (onset within the last week). PADMINI Castellano Attn: Accounting,[address] [facility], [place], [address], [facility] 11/11/2024 22:36:53 5 text/html HypertensionReported by PatientPatient is on amlodipine 10 mg daily. He does have an elevation today Obstructive Sleep Apnea F/UReported by PatientHPIFor quality, patient reportswitnessed apneaandsnoring with apnea. For location, patient reportsenlarged tonsils __andthroat pain. For context, patient reportshypertensionbut reportsrecent upper respiratory infectionandwitness to sleep spouse. For associated symptoms, patient reportsnasal congestion. For onset/timing, patient reportschronic. For alleviating factors, patient reportsrelief with cpap. For aggravating factors, patient reportsworse during an upper respiratory infection (a cold)andworse when allergies are active. For prior tests, patient reportspsg. For prior treatment, patient reportscpap. For prior opinion, patient reportspcp. Prediabetes with A1c 6.1% on October PADMINI Castellano Attn: Accounting,[address] [facility], [place], [address], [facility] 02/10/2025 23:20:33 5 text/html Abdominal PainReported by PatientAbdominal PainFor quality, patient reportspain,bloating,aching ,dull, andtender. For associated symptoms, patient reportsfeverbut reportsno chills,no blood in the urine,no heartburn, andno shortness of breath. For location, patient reportsrlq,radiating, andmigration. For severity, patient reportsmoderate. For duration, patient reportsintermittent. For onset/timing, patient reportswax/wane. For modifying factors, patient reportsnothing gives reliefandnothing makes it worse. PADMINI Castellano Attn: Accounting,[address] [facility], [place], [address], [facility] 04/05/2025 09:24:04
[2025-04-10 08:16] LABS: Hematocrit 48.4 % (42.0-52.0); Hemoglobin 15.8 g/dL (14.0-18.0); Immature Granulocyte Percent A 0.3 % (0-0.5); Lymphocytes Absolute Auto 1.75 K/mm3 (0.9-3.2); Mean Corpuscular HGB Conc 32.6 g/dl (32-36); Mean Corpuscular Hemoglobin 28.5 pg (26-34); Mean Corpuscular Volume 87.4 fl (80-100); Nucleated Red Blood Cells Absolute Auto 0.000 K/mm3 (0.0-0.012); Nucleated Red Blood Cells Perc 0.0 % (0.0-0.2); Platelet Count Result 297 k/mm3 (150-375); Red Blood Count 5.54 M/mm3 (4.6-6.20); White Blood Count 7.4 K/mm3 (4.5-10.0)
[2025-04-10 08:35] LABS: Alanine Aminotransferase 57 U/L (6-50); Albumin Level 4.3 g/dL (3.5-5.1); Alkaline Phosphatase 99 U/L (38-126); Anion Gap 8 mmol/L (4-12); Aspartate Amino Transferase 41 U/L (17-59); Bilirubin,Total 0.7 mg/dL (0.2-1.3); Blood Urea Nitrogen 13 mg/dL (9-20); Calcium 9.4 mg/dL (8.4-10.2); Carbon Dioxide 25 mmol/L (22-30); Chloride 104 mmol/L (98-107); Cholesterol 162 mg/dL (0-200); Estimated Glomerular Filt Rate 58; Glucose 124 mg/dL (65-110); HDL Direct 35 mg/dL; Potassium 4.2 mmol/L (3.4-5.0); Sodium 137 mmol/L (137-145); Total Protein 8.3 g/dL (6.3-8.2); Triglycerides 137 mg/dL (<150)
[2025-04-10 08:56] LABS: Hemoglobin A1C 6.8 % (<5.7)
== END 2025-04-10 07:30 | disposition home or self-care (01) ==
LOC: ANHLAB 07:29
PROVIDERS: PCP Physician Assistant; Visit Provider Physician Assistant
DX: E78.2 Mixed hyperlipidemia (principal); R73.03 Prediabetes; Z79.899 Other long term (current) drug therapy
CPT/HCPCS: 36415; 80053; 80061; 83036; 85025

== ENCOUNTER 2025-07-13 07:54 | Outpatient (CLI) | payer BC, SELFPAY ==
--- OUTSIDE RECORDS SUMMARY | 2025-04-14 06:00 | XMS_ITS ---
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 Role Phone Jenifer Alfred Primary Care Provider Jayc Brody Unavailable [phone] REASON FOR VISIT Patient had to leave Social History Sex Assigned At : Social History Observation Description Sex Assigned At Male Encounters Encounter Location Date Provider Diagnosis [facility] [place] [id number] [address] 04/14/2025 Jacy Villatoro Plan Of Treatment Next Appt Details Provider Name:Charissa Cody , 07/14/2025 03:00:00 PM, [facility] [address] [facility], [address], [address], Provider Name:Jacy pineda, 07/14/2025 04:15:00 PM, [facility] [address] [facility], [address], [address], Provider Name:Charissa Cody , 07/28/2025 03:00:00 PM, [address] [facility], [address], [address], Progress Notes * KARMA FINE DDOB:[birth year] (50 yo M)Acc No.[id number]:04/14/2025 Patient: Jose KARMA WILLINGHAM Provider: Santiago Villatoro :1975 A ge:49 Y S ex:Male Date:04/14/2025 Address:[address] [place] [address] , [place] [facility] Pcp:Jenifer WASHINGTON Subjective: * Chief Complaints: * P atient had to leave Billing Information: * Procedure Codes: * Electronic signature of Jesus Manuel Villatoro on 07/13/2025 at 08:07 AM CDT Sign off status: Pending * Provider: Santiago Villatoro Date: 0 04/14/2025 Generated for Roosevelt garcia/Ramonita/Ruby on: 1 08:07 AM CDT
--- OUTSIDE RECORDS SUMMARY | 2025-06-30 03:00 | XMS_ITS ---
Author Organization [facility] [employer] [facility] Address [facility] [facility] [address] [address] Care Team Providers Care Trials Manager Name Role Phone Jenifer Alfred Primary Care Provider Jacy Brody Unavailable [phone] Charissa Cody Unavailable [phone] REASON FOR VISIT 2 week follow up Social History Sex Assigned At : Social History Observation Description Sex Assigned At Male Encounters Encounter Location Date Provider Diagnosis [facility] [employer] [address] [facility] [address] [address] 06/30/2025 Charissa Cody Plan Of Treatment Next Appt Details Provider Name:Charissa Cody , 07/14/2025 03:00:00 PM, [facility] [facility], [address], [address], Provider Name:Jacy pineda, 07/14/2025 04:15:00 PM, [facility], [address], [address], Provider Name:Charissa Cody , 07/28/2025 03:00:00 PM, [facility] [place] [address], [address], Progress Notes * KARMA FINE DDOB:[birth year] (50 yo M)Acc No.[id number]:06/30/2025 Patient: Jose KARMA [place] Provider: Vy CODY LCSW :1975 A ge:49 Y S ex:Male Date:06/30/2025 Address:[address] [place] [address] , [facility] Pcp:Jeinfer WASHINGTON Data: * Chief Complaints: * 2 week follow up * Electronic signature of Salina Cody LCSW on 07/13/2025 at 08:07 AM CDT Sign off status: Pending Signatures: No Ad Hoc Signature Added * Provider: Vy CODY LCSW Date: 1 Generated for Roosevelt garcia/Ramonita/eTdarwin on: 08:07 AM CDT
--- NOTE | ~2025-07-13 | CT_ITS ---
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 Additional sagittal and coronal reconstructions were performed. Automated exposure control and iterative reconstruction technique were employed. The dose-length product was 446.34 mGy-cm. COMPARISON: Left foot MRI dated 02/19/2023 attempted first and second tarsal metatarsal arthrodesis with dorsal plate and screws spanning the first and second tarsometatarsal joints as well as obliquely oriented likely compression screws extending between the base of the first metatarsal and the mid cuneiform and the base of the second metatarsal and the medial cuneiform. There is persistent lucency the irregular sclerotic margins of the bones at each of the articulations between the medial and mid cuneiforms and base of the first and second metatarsals consistent with nonunion. There is also some increased lucency surrounding several of the screws including both of the obliquely oriented compression screws consistent with loosening. There is also loosening and backing out of from the middle cuneiform the tiny proximal most screw of the dorsal plate-screw fixation at the second tarsal metatarsal joint. Alignment remains near-anatomic. No fractures identified. 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 Heterotopic ossicle within the deep deltoid ligament consistent with sequela of chronic sprain. Additional tiny corticated ossicles along the anterolateral margin of the anterior process of the calcaneus also likely sequ alma rosa of old trauma. No ankle joint effusion or other abnormal fluid collections. Soft tissues are unremarkable. 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 IMPRESSION: 1. Reviewed, dictated and finalized at location A. IMPRESSION: 1.
--- OUTSIDE RECORDS SUMMARY | 2025-07-13 08:08 | XMS_ITS | Patient Health Record ---
Author Organization [facility] [employer] Address [address] [place] [address] Care Team Providers Care Sign Language Translator Name Role Phone Jenifer Alfred Primary Care Provider Jacy Brody Unavailable [phone] Charissa Cody Unavailable [phone] Allergies No Known Allergies Reason For Referral No Information Medications Medication SIG (Take, Route, Frequency, Duration) Notes Start Date End Date Status amLODIPine Besylate 10 MG Tablet TAKE 1 TABLET BY MOUTH EVERY DAY Oral; Duration: 30 Days Active Sertraline HCl 100 MG Tablet 1 and 1/2 tablet Orally Once a day; Duration: 90 days 150 mg total Active Omeprazole 40 MG Capsule Delayed Release TAKE ONE CAPSULE BY MOUTH DAILY WITH A MEAL Oral; Duration: 30 Days Active Famotidine 20 MG Tablet 1 tablet at bedt jania as needed Orally Once a day Not-Taking ARIPiprazole 2 MG Tablet 1 tablet Orally Once a day; Duration: 90 days 12/30/2024 Active Social History Tobacco Use: Social History Observation Description Date Details (start date - stop date) Never Smoker NA - NA Sex Assigned At : Social History Observation Description Sex Assigned At Male Social History Miscellaneous: Social Info Question Answer Notes Advance Care Planning Are you your own decision-maker Yes Do you have Power of B And B Gang Worker for Health or [facility] reg? Yes Safety issues: Are there any firearms in the house? Ye s Social History Social Info Question Answer Notes Household: Marital Status: Number of Adults in household: 4 Number of Children in Household: 0 Level of Education: Finished College Household: Social Info Question Answer Notes Household Marital status: Number of adults in household: 2 Number of children in household: 3 Drug/Alcohol: Social Info Question Answer Notes Drugs Have you used drugs other than those for medical reasons in the past 12 months? Yes Methamphetamine? No Crack? No LSD? No Ecstacy? No Prescription opiates? No Marijuana? Yes Ketamine? No PCP? No Is there a minor (18 years or younger) at risk at home? No Are you still using? Yes Do you want treatment? No AUDIT-C (Standard) Points 5 Interpretation Negative Did you have a drink contain ing alcohol in the past year? Yes How often did you have six or more drinks on one occasion in the past year? Less than monthly (1 point) How many drinks did you have on a typical day when you were drinking in the past year? 3 or 4 drinks (1 point) How often did you have a drink containing alcohol in the past year? 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 No, occasional gummie Do you drink alcohol? Quit 2023 Section Notes: Social History Substance Use Do [...] currently employed?: Yes Who is your employer?: [employer] Marriage and Sexuality What is your relationship status?: Are you sexually active?: Yes Do you use protection during sex?: No How many children do you have?: 3 Home and Environment Are there any guns present in your home?: Yes Advance Directive Do you have an advance directive?: No Do you have a medical power of mergers and acquisitions attorney?: No First name used: WERO Social History Substance Use Do you or [...] currently employed?: Yes Who is your employer?: [employer] Marriage and Sexuality What is your relationship status?: Are you sexually active?: Yes Do you use protection during sex?: No How many children do you have?: 3 Home and Environment Are there any guns present in your home?: Yes Advance Directive Do you have an advance directive?: No Do you have a medical power of mergers and acquisitions attorney?: No First name used: WERO Problems Problem Type SNOMED Code ICD Code Onset Dates Problem Status W/U Status Risk Notes Problem Mild recurrent major depression (12969407) Major depressive disorder, recurrent, mild (F33.0) 4 Active confirmed Problem Recurrent major depression in full remission (49772241) Major depressive disorder, recurrent, in full remission (F33.42) Active confirmed Problem Generalized anxiety disorder (49849966) Generalized anxiety disorder (F41.1) 4 Active confirmed Problem Obstructive sleep apnea syndrome (disorder) (73016081) Obstructive sleep apnea (adult) (pediatric) (G47.33) 4 Active confirmed Problem Panic disorder (774696367) Panic attacks (F41.0) Active confirmed Problem Essential hypertension (97010704) Benign essential HTN (I10) Active confirmed Vital Signs Heart Rate 92 /min 04/20/2025 Height-cm 190.50 cm 04/20/2025 Blood pressure diastolic 95 mm Hg 04/20/2025 Weight-kg 129.91 kg 04/20/2025 Height 75.00 in 04/20/2025 Blood pressure systolic 153 mm Hg 04/20/2025 Weight 286.4 lbs 04/20/2025 BMI 35.79 kg/m2 04/20/2025 Encounters Encounter Location Date Provider Diagnosis [place] [address] [facility] [address] [address] 08/25/2024 Jacy Villatoro Major depressive disorder, recurrent, mild F33.0 ; Generalized anxiety disorder F41.1 ; Obstructive sleep apnea (adult) (pediatric) G47.33 and Benign essential hypertension I10 [place] [address] [address] 10/07/2024 Jacy Villatoro Major depressive disorder, recurrent, mild F33.0 ; Generalized anxiety disorder F41.1 ; Obstructive sleep apnea (adult) (pediatric) G47.33 and Benign essential hypertension I10 [place] [address] [address] 12/30/2024 Jacy Villatoro Generalized anxiety disorder F41.1 ; Panic attacks F41.0 ; Major depressive disorder, recurrent, in full remission F33.42 ; Obstructive sleep apnea (adult) (pediatric) G47.33 ; Benign essential HTN I10 and Encounter for screening for depression Z13.31 [place] [address] [address] 04/20/2025 Jacy Villatoro Major depressive disorder, recurrent, mild F33.0 ; Generalized anxiety disorder F41.1 ; Panic attacks F41.0 and Benign essential HTN I10 [place] [address] [address] 06/02/2025 Charissaminerva Cody Major depressive disorder, recurrent, mild F33.0 ; Generalized anxiety disorder F41.1 and Panic attacks F41.0 [place] [address] [address] 06/16/2025 Charissaminerva Cody Generalized anxiety disorder F41.1 ; Major depressive disorder, recurrent, in full remission F33.42 and Panic attacks F41.0 [place] [address] [facility] [address] [place] [address] 09/22/2024 Jacy Villatoro Major depressive disorder, recurrent, mild F33.0 [place] [address] [facility] [address] [place] [address] 04/20/2025 Jacy Villatoro [place] [address] [address] 08/28/2024 [place] [address] [facility] [address] [place] [address] 08/28/2024 Major depressive disorder, recurrent, mild F33.0 [facility] [address] [address] 04/29/2025 Jacy Villatoro [facility] [address] [facility] [address] [address] 05/07/2025 Jacy Villatoro [place] [address] [address] [facility] [address] [address] 05/07/2025 Jacy Villatoro Assessments Encounter Date Diagnosis (ICD Code) Assessment [...] up 3 months, sooner if concerns arise 04/20/2025 Major depressive disorder, recurrent, mild (ICD-10 - F33.0) 06/02/2025 Major depressive disorder, recurrent, mild (ICD-10 - F33.0) Client is a 49 y/o, male, with 3 grown children. 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 Client is the youngest of 2 and grew up in [place], [place]. Jamia was a freshman in high school when thefamily moved to this area. Client reports childhood was pretty good for the most part. Father had an alcohol problem and was angry all the time. Father in 2018. Mother had depression but was always available when needed. Mom lives nearby and their relationship is good. Client started receiving serives in this clinic 11/09/22 and has cristopher seeing DAWSON Ferreira since 08/25/24. He is currently prescribed zolft and Abilify. Current PHQ=3. Client reports he started experiencing depression in middle school, maybe before. With current medications he reports only mild issues with anhedonia, feeling down and fatigue. When his sympotms were at their worst, he reports a lot of anger. He reports there is a history of infidelity on his 's part. Current GRIFFIN=1. Client reports anxiety became noticeable when growing up. He currently reports only irritability. He reports his depression is usually more noticeable than the anxiety. Client has a history of panic attacks but has not had one in a long time. Client experienced trauma as a child. He denies nightmares and avoidance. Hereports mild issues with anhdonia, irritability, anger. 06/02/2025 Generalized anxiety disorder (ICD-10 - F41.1) Client is a 49 y/o, male, with 3 grown children. 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 Client is the youngest of 2 and grew up in [place], [place]. Jamia was a freshman in high school when thefamily moved to this area. Client reports childhood was pretty good for the most part. Father had an alcohol problem and was angry all the time. Father in 2019. Mother had depression but was always available when needed. Mom lives nearby and their relationship is good. Client started receiving serives in this clinic 11/09/22 and has cristopher seeing DAWSON Ferreira since 08/25/24. He is currently prescribed zolft and Abilify. Current PHQ=3. Client reports he started experiencing depression in middle school, maybe before. With current medications he reports only mild issues with anhedonia, feeling down and fatigue. When his sympotms were at their worst, he reports a lot of anger. He reports there is a history of infidelity on his 's part. Current GRIFFIN=1. Client reports anxiety became noticeable when growing up. He currently reports only irritability. He reports his depression is usually more noticeable than the anxiety. Client has a history of panic attacks but has not had one in a long time. Client experienced trauma as a child. He denies nightmares and avoidance. Hereports mild issues with anhdonia, irritability, anger. 06/16/2025 Major depressive disorder, recurrent, in full remission (ICD-10 - F33.42) 06/16/2025 Generalized anxiety disorder (ICD-10 - F41.1) 06/16/2025 Panic attacks (ICD-10 - F41.0) 06/02/2025 Panic attacks (ICD-10 - F41.0) Client is a 49 y/o, male, with 3 grown children. 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 Client is the youngest of 2 and grew up in [place], [place]. Jamia was a freshman in high school when thefamily moved to this area. Client reports childhood was pretty good for the most part. Father had an alcohol problem and was angry all the time. Father in 2019. Mother had depression but was always available when needed. Mom lives nearby and their relationship is good. Client started receiving serives in this clinic 11/09/22 and has cristopher seeing DAWSON Ferreira since 08/25/24. He is currently prescribed zolft and Abilify. Current PHQ=3. Client reports he started experiencing depression in middle school, maybe before. With current medications he reports only mild issues with anhedonia, feeling down and fatigue. When his sympotms were at their worst, he reports a lot of anger. He reports there is a history of infidelity on his 's part. Current GRIFFIN=1. Client reports anxiety became noticeable when growing up. He currently reports only irritability. He reports his depression is usually more noticeable than the anxiety. Client has a history of panic attacks but has not had one in a long time. Client experienced trauma as a child. He denies nightmares and avoidance. Hereports mild issues with anhdonia, irritability, anger. 04/20/2025 Generalized anxiety disorder (ICD-10 - F41.1) 10/07/2024 Generalized anxiety disorder (ICD-10 - F41.1) [...] up 3 months, sooner if concerns arise 04/20/2025 Panic attacks (ICD-10 - F41.0) 04/20/2025 Benign essential HTN (ICD-10 - I10) 10/07/2024 Benign essential hypertension (ICD-10 - I10) [...] - Reinforce importance of continued CPAP use 04/20/2025 Other Wero Georges, male patient with history of aripiprazole use, presents with recent emotional distress triggered by past marital issue and requests for medication adjustment and therapy referral. Mood Disturbance Assessment: Patient reports a rough couple weeks triggered by memories of a past marital issue from 4 years ago. He describes an intense emotional reaction (lost my shit) but states he feels better now. Current mood is reported as pretty good with no significant depressive symptoms or suicidal ideation. Sleep and appetite are reported as good. Patient expresses concern about the recent reduction in aripiprazole dosage, stating I don't think I'm okay with the two. Plan: - Aripiprazole - Schedule appointment with therapist for counseling - Follow up in 3 months - Monitor for mood changes, especially in relation to potential start of Mounjaro (tirzepatide) - Advise patient to report any increased irritability or depressed mood, particularly after starting Mounjaro Weight Management Assessment: Patient reports that primary care provider has prescribed Mounjaro (tirzepatide) for weight management. Patient is awaiting medication availability and has not yet started treatment. Plan: - Monitor initiation of Mounjaro therapy - Educate patient on potential interaction between Mounjaro and psychiatric medications due to metabolic effects - Advise patient to report any mood changes after starting Mounjaro Medical Decision Making Wero Georges is a male patient with a history of mental health concerns presenting with recent emotional distress triggered by past marital issues. The patient reported a rough couple weeks due to being triggered by memories of his talking to a coworker 4 years ago, which caused significant emotional distress. Current mood is reported as pretty good with no suicidal ideation, suggesting improvement from the recent episode. Sleep and appetite are good, with the patient noting his appetite is too good. The clinician considered the patient's current mental state and the effectiveness of the reduced aripiprazole dose (2 mg), noting the patient's statement that he doesn't think he's okay with the two. This suggests the need for potential medication adjustment. The clinician also factored in the upcoming initiation of Mounjaro (tirzepatide) for an undisclosed condition, acknowledging the potential impact on medication metabolism and absorption, which could affect the patient's mental health treatment. 06/16/2025 Other Client focused on his need to control his anxiety better especiallly as it relates to his relationship with his . Therapist actively listed to client and asked questions for clarification. Therapist then utilized a cognitive behavioral intervention to help client explore strategies to reduce anxiety and to be ableto set boundaries when needed. PHQ=1 GRIFFIN=3 Plan Of Treatment Next Appt Details Provider Name:Charissa Cody , 07/14/2025 03:00:00 PM, [address], [address], Provider Name:Jacy pineda, 07/14/2025 04:15:00 PM, [address], [address], Provider Name:Charissa Cody , 07/28/2025 03:00:00 PM, [address], [address], Insurance Providers Payer Name Payer Address Payer Phone Subscriber Number Group Number Insured Name Patient Relationship to Insured Coverage Start Date Coverage End Date [facility] [address] [place] [address] [id number] KARMA GEORGES Self - patient is the insured Medical (General) History Medical History History ICD Code Psychiatric history: General ized anxiety disorder, Major depressive disorder, panic attacks Obesity Obstructive sleep apnea syndrome Benign essential hypertension I10 GERD (gastroesophageal reflux disease) K 21.9 Hyperlipidemia, mixed E78.2 Past Psychiatric History: Major Depressi ve Episode abdominal aortic aneurysm: No atrial fibrillation: No chronic fatigue syndrome: No essential tremor: No hyperlipidemia: No hypertension: No Parkinson's disease: No restless leg syndrome: No stroke: No subdural hematoma: No type 1 diabetes mellitus: No type 2 diabetes mellitus: Yes vitamin B12 deficiency: No vitamin D deficiency: No
--- OUTSIDE RECORDS SUMMARY | 2025-07-13 08:08 | XMS_ITS | Clinical Summary ---
Author Organization [facility] Address [address] [place] [address] Care Team Providers Care Drafter Detail Name Role Phone Unknown, Notinfile Primary Care Provider Unavail able Cate Mar DPM Unavailable [phone] Allergies No known active allergies Medications sertraline [...] on file Legal Sex Male 11:14 AM [employer]OCK [employer] Gender Identity Not on file Sexual Orientation Not on file Obstetrics History Last Filed Vital Signs Vital Sign Reading Time Taken Comments Blood Pressure 136/93 09/06/2023 4:25 PM CUSTOM STOCK [employer]KER Pulse 102 09/06/2023 4:25 PM [employer]OM STOCK [employer] Temperature 36 C (96.8 F) 09/06/2023 4:25 PM CUSTOM STOCK MAKER Respiratory Rate 20 09/06/2023 4:25 PM CUSTOM STOCK MAKER Oxygen Saturation 93% 09/06/2023 4:25 PM CUSTOM STOCK MAKER Inhaled Oxygen Concentration - - Weight 116.4 kg (256 lb 9.9 oz) 023 10:12 AM CUSTOM STOCK MAKER Height 188 cm (6' 2) 09/06/2023 10:12 AM CUSTOM STOCK MAKER Body Mass Index 32.95 09/06/2023 10:12 AM CUSTOM STOCK MAKER Plan of Treatment Health Maintenance Due Date Last Done Comments Colon Cancer Screening-Colonoscopy 1973 Depression Screening 1973 Hepatitis C Screening 1973 Prostate Cancer Screening-PSA 1973 Hepatitis B Screening 1991 Regular Well Visit/Exam 18-64 1991 Covid-19 Vaccine ( season) 2025 12/28/2022, 08/22/2021, 12/19/2020, Additional history exists Influenza Vaccine (#1) 2025 07/17/2024, 2012 DTaP/Tdap/Td Vaccine (2 - Td or Tdap) 06/15/2033 06/15/2023 Zoster Vaccine Completed 10/23/2024, 07/17/2024 Pneumococcal vaccine <65 Aged Out No longer eligible based on patient's age to complete this topic Medical Devices Implanted Type Area Agency Cashier Device Identifier Shelf Expiration Date Model / Serial / Lot [employer] Low Profile Foot Ankle Plate Bone Titanium Lapidus Ar-8941 - Sna - [id number] Implanted:Qty: 1 on 09/06/2023 by Cate Mar, ZAKIM at [facility] Plate Left: Foot [employer] AR-8941 / NA / [id number] [employer] Screw Bone 3.5mm 48mm Ti Mini F/T Cmpr Cannltd Variable Step Ar-8730-48h - Sn/A - [id number] Implanted:Qty: 1 on 09/06/2023 by Cate Mar, ZAKIM at [facility] Screw Left: Foot [employer] C1713 AR-8730-48H / N/A / [id number] [employer] Screw Bone 4mm 36mm Ti Std Cannulated Hex Ar-8740-36h - Sn/A - [id number] Implanted:Qty: 1 on 09/06/2023 by Cate Mar, ZAKIM at [facility] Screw Left: Foot [employer] C1713 AR-8740-36H / N/A / [id number] [employer] Low Profile Screws 2.4mm 26mm Self Drill Self Tap Cannulated Ar-8724-26 - Sn/A - [id number] Implanted:Qty: 1 on 09/06/2023 by Cate Mar, DPM at [facility] Screw Left: Foot [employer] C1713 AR-8724-26 / N/A / [id number] [employer] Screw Kreulock Compression Titanium 3.5x24mm [id number] - Sn/A - [id number] Implanted:Qty: 2 on 09/06/2023 by Cate Mar, DPM at [facility] Screw Left: Foot [employer] C1713 AR-8935CL-2 4 / N/A / [id number] [employer] Screw Kreulock Compression Titanium [id number] - Sn/A - [id number] Implanted:Qty: 1 on 09/06/2023 by Cate Mar, DPM at [facility] Screw Left: Foot [employer] C1713 AR-8935CL-2 6 / N/A / [id number] [employer] Low Profile Screws 3.5mm 32mm Self Tap Solid Hexalobe Midfoot Ar-8935-32 - Sn/A - [id number] Implanted:Qty: 1 on 09/06/2023 by Cate Mar, ZAKIM at [facility] Screw Left: Foot [employer] C1713 AR-8935-32 / N/A / [id number] [employer] Screw Kreulock Compression Titanium 2.4x20mm [id number] - Sn/A - [id number] Implanted:Qty: 2 on 09/06/2023 by Cate Mra, ZAKIM at [facility] Screw Left: Foot [employer] C1713 AR-8724VCL- 20 / N/A / [id number] [employer] Screw Kreulock Compression Titanium 2.4x26mm [id number] - Sn/A - [id number] Implanted:Qty: 1 on 09/06/2023 by Cate Mar, ZAKIM at [facility] Screw Left: Foot [employer] C1713 AR-8724VCL- 26 / N/A / [id number] [employer] Graft Bone Filler Allosync 2.5cc Putty Abs-2009-10 - Sn/A - [id number] Implanted:Qty: 1 on 09/06/2023 by Cate Mar, ZAKIM at [facility] Left: Foot [employer] 07/27/2027 ABS-2009-10 / N/A / [id number] [employer] Screw Kreulock Compression Titanium 2.4x18mm [id number] - Sn/A - [id number] Implanted:Qty: 1 on 09/06/2023 by Cate Mar, ZAKIM at [facility] Left: Foot [employer] C1713 AR-8724VCL- 18 / N/A / [id number] [employer] Plate Bone Titanium T Foot Metatarsal 6 Hole Low Profile 2.4mm Screw [id number] - [id number] Implanted:Qty: 1 on 09/06/2023 by Cate Mar, LUIGI at [facility] Left: Foot [employer] C1776 AR-8952MT-0 6 / [id number] / N/A Explanted Type Area Agency Cashier Device Identifier Shelf Expiration Date Model / Serial / Lot [employer] Low Profile Screws 3.5mm 18mm Self Tap Solid Hexalobe Midfoot Ar-8935-18 - Sn/A - [id number] Explanted:Qty: 1 on 09/06/2023 by Cate Mar DPM at [facility] Screw Left: Foot [employer] C1713 AR-8935-18 / N/A / [id number] [employer] Screw Kreulock Compression Titanium 3.5x24mm [id number] - Sn/A - [id number] Explanted:Qty: 1 on 09/06/2023 by Cate Mar DPM at [facility] Screw Left: Foot [employer] C1713 AR-8935CL-2 4 / N/A / [id number] Insurance [employer] Care Teams Drafter Detail Relationship Specialty Start Date End Date Unknown, Notinfile PCP - General 09/05/23 Cate Mar DPM [address] [place] [id number] Consulting Physician Foot and Ankle Surg 09/06/23
== END 2025-07-13 07:55 | disposition home or self-care (01) ==
PROVIDERS: PCP Physician Assistant; Visit Provider Podiatrist Foot & Ankle Surgery
DX: M96.0 Pseudarthrosis after fusion or arthrodesis (principal); T84.293A Other mechanical complication of internal fixation device of bones of foot and toes, initial encounter
CPT/HCPCS: 73700

== ENCOUNTER 2025-08-28 07:44 | Outpatient (CLI) | payer BC, SELFPAY ==
[2025-08-28 08:42] LABS: Hematocrit 43.9 % (42.0-52.0); Hemoglobin 15.3 g/dL (14.0-18.0); Immature Granulocyte Percent A 0.3 % (0-0.5); Lymphocytes Absolute Auto 1.76 K/mm3 (0.9-3.2); Mean Corpuscular HGB Conc 34.9 g/dl (32-36); Mean Corpuscular Hemoglobin 30.6 pg (26-34); Mean Corpuscular Volume 87.8 fl (80-100); Nucleated Red Blood Cells Absolute Auto 0.000 K/mm3 (0.0-0.012); Nucleated Red Blood Cells Perc 0.0 % (0.0-0.2); Platelet Count Result 319 k/mm3 (150-375); Red Blood Count 5.00 M/mm3 (4.6-6.20); White Blood Count 7.6 K/mm3 (4.5-10.0)
[2025-08-28 08:50] LABS: Alanine Aminotransferase 45 U/L (6-50); Albumin Level 4.4 g/dL (3.5-5.1); Alkaline Phosphatase 113 U/L (38-126); Anion Gap 7 mmol/L (4-12); Aspartate Amino Transferase 36 U/L (17-59); Bilirubin,Total 0.6 mg/dL (0.2-1.3); Blood Urea Nitrogen 11 mg/dL (9-20); Calcium 9.3 mg/dL (8.4-10.2); Carbon Dioxide 23 mmol/L (22-30); Chloride 111 mmol/L (98-107); Cholesterol 172 mg/dL (0-200); Estimated Glomerular Filt Rate > 60; Glucose 111 mg/dL (65-110); HDL Direct 41 mg/dL; Hemoglobin A1C 5.5 % (<5.7); Potassium 3.6 mmol/L (3.4-5.0); Sodium 141 mmol/L (137-145); Total Protein 8.0 g/dL (6.3-8.2); Triglycerides 215 mg/dL (<150)
[2025-08-28 09:13] LABS: Free T4 Free Thyroxine 0.86 ng/dL (0.78-2.19)
[2025-08-28 09:26] LABS: Prostate Specific Antigen 1.8 ng/mL (< OR = 4.0); Thyroid Stimulating Hormone 0.515 uIU/mL (0.465-4.680)
== END 2025-08-28 07:45 | disposition home or self-care (01) ==
LOC: ANHLAB 07:46
PROVIDERS: PCP Physician Assistant; Visit Provider Physician Assistant
DX: Z12.5 Encounter for screening for malignant neoplasm of prostate (principal); E11.9 Type 2 diabetes mellitus without complications; E78.2 Mixed hyperlipidemia; Z68.32 Body mass index [BMI] 32.0-32.9, adult; Z79.899 Other long term (current) drug therapy
CPT/HCPCS: 36415; 80053; 80061; 82043; 83036; 84153; 84439; 84443; 85025; G0103